=== PATIENT | female | born 1995 | race Caucasian/White ===

== ENCOUNTER 2017-03-27 13:03 | Inpatient (IN) ==
--- NOTE | 2017-03-27 13:19 | Emergency Department Note ---
Disposition Clinical Impression: Meningitis Disposition: Admitted As Inpatient Condition: Good Time of Disposition: 17:35 General Adult HPI - General Chief complaint: ED Neck Pain/Injury Stated complaint: R/O meningitis Time Seen by Provider: 03/27/17 13:13 Source: patient Limitations: no limitations Nursing Notes Reviewed: Yes Vital Signs Reviewed: Yes - History of Present Illness HPI Narrative: 22-year-old female who was seen here yesterday diagnosed with a bladder infection comes in with bilateral ankle pain and right shoulder pain headache and neck pain. Patient was seen at the urgent care and sent here for rule out meningitis. Patient states she has not run a fever although she feels hot inside. Onset (ago): day(s) (2) Location: upper extremity, lower extremity Pain Scale: 10 Quality: aching Consistency: constant Improves with: nothing Worsens with: nothing Associated symptoms: Reports: headaches - Related Data Home Medications Medication Instructions Recorded Confirmed cephALEXin [Keflex] 500 mg PO BID 03/27/17 Previous Rx's Medication Instructions Recorded Ibuprofen [Motrin] 600 mg PO Q6HR PRN #30 tab 03/26/17 Nitrofurantoin Monohyd/M-Cryst 100 mg PO BID #20 capsule 03/26/17 [Macrobid 100 mg Capsule] Allergies Allergy/AdvReac Type Severity Reaction Status Date / Time No Known Allergies Allergy Verified 03/27/17 13:10 All systems ED: reviewed and negative except as stated. Constitutional: Denies: fever, chills, weakness, weight change Eyes: Denies: eye pain, eye discharge, vision change ENT ED: Denies: ear pain, throat pain, dental pain, hearing loss, epistaxis, congestion, dysphagia Cardiovascular: Denies: chest pain, palpitations, dyspnea on exertion, edema, syncope Respiratory: Denies: cough, dyspnea, wheezes, hemoptysis, stridor Gastrointestinal: Denies: abdominal pain, nausea, vomiting, diarrhea, constipation, hematemesis, melena, hematochezia Genitourinary: Denies: dysuria, frequency, hematuria, discharge Musculoskeletal: Reports: neck pain, arthralgia. Denies: back pain, myalgia Integumentary: Denies: rash, abrasion, lesions Neurological: Denies: headache, weakness, numbness, paresthesias, confusion, abnormal gait, vertigo Psychiatric: Denies: anxiety, depression, suicidal thoughts, homicidal thoughts , auditory hallucinations, visual hallucinations Endocrine: Denies: fatigue Hematological/Lymphatic: Denies: easy bleeding, easy bruising Allergic/Immunologic: Denies: facial swelling, urticaria Past Medical History - Past Medical History Medical history: Reports: no medical history Psychiatric history: Reports: anxiety, bipolar, depression [employer] history: Reports: endometriosis - Social History Smoking Status: Former smoker Smokeless Tobacco Status: No Alcohol use: Reports: none Drug use: Reports: none Physical Exam - General Limitations: no limitations General appearance: alert, in no apparent distress - Head Head exam: atraumatic, normocephalic, normal inspection - Eye Eye exam: Present: normal appearance, PERRL, EOMI - ENT ENT exam: normal exam, normal oropharynx, mucous membranes moist - Neck Neck exam: Present: normal inspection, full ROM, trachea midline - Chest Chest inspection: Present: normal inspection, symmetric chest wall rise - Respiratory Respiratory exam: Present: normal lung sounds bilaterally - Cardiovascular Cardiovascular exam: Present: regular rate, normal rhythm, normal heart sounds - Abdominal Exam Abdominal exam: Present: soft, Non-Tender. Absent: tenderness, distention, guarding, rebound, rigidity - Extremities Exam Extremities exam: Present: normal inspection, full ROM. Absent: tenderness, pedal edema - Expanded Lower Extremity Exam Neurovascular/Tendon exam: Absent: motor deficit, sensory deficit, tendon deficit Gait: observed and normal - Back Exam Back exam: Present: normal inspection, full ROM. Absent: tenderness - Neurological Exam Neurological exam: Present: alert, oriented X3 - Psychiatric Psychiatric exam: Present: normal affect, normal mood - Skin Skin exam: Present: warm, dry, intact, normal color Course - Reevaluation(s) Reevaluation #1: Patient with a headache and generalized body aches. Patient was seen at the urgent care concern for meningitis. Patient's white count is 18,000. Informed consent for LP was obtained clear fluid was obtained. However she does have 12 cells per high-powered field with 55% neutrophils. Based on her clinical presentation this likely represents a early viral meningitis, however until cultures are returned we will treat her as bacterial. She was given 2 g of Rocephin, a gram of vancomycin. Time: 17:33 Reevaluation #2: Hospitalist called back and requested we get a head CT prior to the patient being admitted. Time: 17:40 Reevaluation #3: Patient developed redness and itching of the scalp. The vancomycin was stopped and will be given Benadryl. After symptoms resolved starting the vancomycin at a lower rate will be attempted. Time: 19:26 - Consultations Consultation #1: Discussed with Cat Her nurse practitioner accepts patient for admission Time: 17:34 Consultation #2: I discussed stopping the vancomycin with , he will restart. Time: 19:51 Vital Signs Temperature 98.6 F 03/27/17 13:06 Pulse Rate 121 03/27/17 13:06 Respiratory Rate 20 03/27/17 13:06 Blood Pressure 143/88 03/27/17 13:06 O2 Sat by Pulse Oximetry 97 03/27/17 13:06 Temperature 98.6 F 03/27/17 13:06 Pulse Rate 115 03/27/17 17:44 Respiratory Rate 16 03/27/17 17:44 Blood Pressure 118/76 03/27/17 17:44 O2 Sat by Pulse Oximetry 100 03/27/17 17:44 Oxygen Delivery Oxygen Delivery Room Air Medical Decision Making - Lab Data Lab results reviewed: Yes I reviewed the patient's lab results. Result diagrams: 03/27/17 13:36 03/27/17 13:36 Lab Results 03/27/17 03/27/17 03/27/17 Range/Units 13:36 13:36 13:36 WBC 18.0 H (4.3-11.1) K/mcL RBC 5.23 H (3.82-4.97) M/mcL Hgb 14.6 (11.5-15.4) g/dL Hct 45.0 H (35.3-44.9) % MCV 86.0 (83.0-100.0) fL MCH 27.9 L (28.0-33.3) pg MCHC 32.4 (31.6-35.5) g/dL RDW 12.5 (11.5-14.5) % Plt Count 270 (140-400) K/mcL MPV 9.8 (9.4-12.4) fL Immature Gran % 0.4 (0-4) % Seg Neutrophils % 83.8 % Lymphocytes % 8.2 % Monocytes % 6.7 % Eosinophils % 0.7 % Basophils % 0.2 % Neutrophils # 15.1 H (1.6-8.9) K/mcL Lymphocytes # 1.5 (0.6-4.6) K/mcL Monocytes # 1.2 (0.0-1.3) K/mcL Eosinophils # 0.1 (0.0-0.6) K/mcL Basophils # 0.0 (0.0-0.2) K/mcL Sodium 139 (136-145) mEq/L Potassium 4.0 (3.5-4.5) mEq/L Chloride 104 (98-109) mEq/L Carbon Dioxide 22 (19-29) mEq/L BUN 11 (7-20) mg/dL Creatinine 0.81 (0.57-1.11) mg/dL Est GFR ( Amer) > 60 (> 60) Est GFR (Non-Af Amer) > 60 (> 60) BUN/Creatinine Ratio 14 (6-26) Glucose 83 (70-99) mg/dL Calculated Osmolality 287 (280-300) Uric Acid (2.6-6.0) mg/dL Calcium 10.5 (8.6-10.8) mg/dL Creatine Kinase 60 (29-168) Units/L Serum , Qual Negative (Negative) CSF Volume mL CSF Appearance (Clear) CSF Color (Colorless) CSF RBC (0.000 - 0.002) M/mcL CSF Tot Nucleated Cells (0-5) TNC/mcL CSF Seg Neutrophils % CSF Band Neutrophils % CSF Lymphocytes % % CSF Monocytes % % CSF Eosinophils % CSF Basophils % CSF Other Cells % CSF Glucose (40-70) mg/dL CSF Xanth Comm (Not Observe) CSF Total Protein (15-45) mg/dL 03/27/17 03/27/17 Range/Units 13:36 16:05 WBC (4.3-11.1) K/mcL RBC (3.82-4.97) M/mcL Hgb (11.5-15.4) g/dL Hct (35.3-44.9) % MCV (83.0-100.0) fL MCH (28.0-33.3) pg MCHC (31.6-35.5) g/dL RDW (11.5-14.5) % Plt Count (140-400) K/mcL MPV (9.4-12.4) fL Immature Gran % (0-4) % Seg Neutrophils % % Lymphocytes % % Monocytes % % Eosinophils % % Basophils % % Neutrophils # (1.6-8.9) K/mcL Lymphocytes # (0.6-4.6) K/mcL Monocytes # (0.0-1.3) K/mcL Eosinophils # (0.0-0.6) K/mcL Basophils # (0.0-0.2) K/mcL Sodium (136-145) mEq/L Potassium (3.5-4.5) mEq/L Chloride (98-109) mEq/L Carbon Dioxide (19-29) mEq/L BUN (7-20) mg/dL Creatinine (0.57-1.11) mg/dL Est GFR ( Amer) (> 60) Est GFR (Non-Af Amer) (> 60) BUN/Creatinine Ratio (6-26) Glucose (70-99) mg/dL Calculated Osmolality (280-300) Uric Acid 3.9 (2.6-6.0) mg/dL Calcium (8.6-10.8) mg/dL Creatine Kinase (29-168) Units/L Serum , Qual (Negative) CSF Volume 4.5 mL CSF Appearance Clear (Clear) CSF Color Colorless (Colorless) CSF RBC < 0.002 (0.000 - 0.002) M/mcL CSF Tot Nucleated Cells 12 H* (0-5) TNC/mcL CSF Seg Neutrophils 55.0 % CSF Band Neutrophils % Test Not Performed CSF Lymphocytes % 43.0 % CSF Monocytes % 2.0 % CSF Eosinophils % Test Not Performed CSF Basophils % Test Not Performed CSF Other Cells % Test Not Performed CSF Glucose 52 (40-70) mg/dL CSF Xanth Comm Not Observed (Not Observe) CSF Total Protein 19 (15-45) mg/dL - Radiology Data Radiology results reviewed: Yes I reviewed the patient's radiology results. Chest X-Ray 03/27/17 13:20 IMPRESSION: No acute cardiopulmonary process. D/ / 03/27/2017 14:26:34 Duy Goodson MD / [email or web address] Interpreting Provider: Duy Goodson MD Ankle X-Ray 03/27/17 13:22 IMPRESSION: 1. No radiographic finding to account for patient's right or left ankle pain. D/ / Oren Henning MD / Oren Henning MD Interpreting Provider: Oren Henning MD Shoulder X-Ray 03/27/17 13:22 IMPRESSION: No acute osseous abnormality of the right shoulder. D/ / 03/27/2017 14:34:39 Duy Goodson MD / [email or web address] Interpreting Provider: Duy Goodson MD Critical Care Time Critical Care Time: Yes Total Critical Care Time: 30 Attestation: The high probability of a clinically significant, sudden or life threatening deterioration of the [neurological] system(s) required my full and direct attention, intervention and personal management. The aggregate critical care time was [30] minutes. This time is in addition to time spent performing reported procedures but includes the following: [x] Data Review and interpretation [x] Patient assessment and monitoring of vital signs [x] Documentation [x] Medication orders and management
[2017-03-27] MEDS ORDERED: 0.9 % Sodium Chloride 1,000 ML IVC ONE (13:24)
[2017-03-27 13:43] LABS: Basophils % 0.2 %; Eosinophils # 0.1 K/mcL (0.0-0.6); Eosinophils % 0.7 %; Hemoglobin 14.6 g/dL (11.5-15.4); Immature Granulocytes % 0.4 % (0-4); Lymphocytes # 1.5 K/mcL (0.6-4.6); Lymphocytes % 8.2 %; Mean Corpuscular HGB Conc 32.4 g/dL (31.6-35.5); Mean Corpuscular Hemoglobin 27.9 pg (28.0-33.3); Mean Platelet Volume 9.8 fL (9.4-12.4); Monocytes # 1.2 K/mcL (0.0-1.3); Monocytes % 6.7 %; Neutrophils # 15.1 K/mcL (1.6-8.9); Platelet Count 270 K/mcL (140-400); Red Blood Count 5.23 M/mcL (3.82-4.97); Red Cell Distribution Width 12.5 % (11.5-14.5); Segmented Neutrophils % 83.8 %
[2017-03-27 13:58] LABS: BUN/Creatinine Ratio 14 (6-26); Blood Urea Nitrogen 11 mg/dL (7-20); Calcium 10.5 mg/dL (8.6-10.8); Carbon Dioxide 22 mEq/L (19-29); Chloride 104 mEq/L (98-109); Creatine Kinase 60 Units/L (29-168); Glucose 83 mg/dL (70-99); Osmolality,Calculated 287 (280-300); Sodium 139 mEq/L (136-145); eGFR For African Americans > 60 (> 60); eGFR For Non-African Americans > 60 (> 60)
[2017-03-27] MEDS ORDERED: 0.9 % Sodium Chloride 1,000 ML IVC SCH (15:30)
[2017-03-27] MEDS ORDERED: *HR* Midazolam HCl 2 MG/2 ML VIAL IVP ONE (15:44)
[2017-03-27] MEDS ORDERED: Ondansetron 4 MG/2 ML VIAL IVP ONE ×2 (15:45→19:15)
[2017-03-27] MEDS ORDERED: Ondansetron 4 MG/2 ML VIAL ONE (15:47)
[2017-03-27] MEDS ORDERED: Lidocaine -MPF 1% 2 ML VIAL INFILT ONE (15:54)
[2017-03-27] MEDS ORDERED: Lidocaine -MPF 2% 5 ML VIAL ONE (15:56)
[2017-03-27 16:54] LABS: Glucose,CSF 52 mg/dL (40-70); Total Protein,CSF 19 mg/dL (15-45)
[2017-03-27 17:00] LABS: Red Blood Cell,CSF < 0.002 M/mcL
[2017-03-27] MEDS ORDERED: Vancomycin 1,000 MG in D5% in Water 250 ML IVPB ONE (17:04)
[2017-03-27 17:19] LABS: Appearance,CSF Clear (Clear)
[2017-03-27] MEDS: 0.9 % Sodium Chloride 1,000 ML IVC SCH ×2 (17:36→22:50)
[2017-03-27] MEDS ORDERED: *HR* Morphine 2 MG/ML SYRINGE IVP ONE (19:15)
--- NOTE | 2017-03-27 20:16 | Internal Med History&Physical ---
Date of Encounter: 03/27/17 Time of Encounter: 19:45 Assessment and Plan (1) Meningitis Current visit: Yes Status: Acute Assess: Ms. Camejo presents with symptoms that began two days ago and worsened this morning with pinpoint rash starting on her lower extremities and spreading to her thighs and abdomen and she went to the urgent care who sent her to the ED for evaluation for possible meningitis. Patient also reports pain in right hand with swelling, right shoulder, upper and lower back, and left ankle. Left ankle has 2.5 inch circular erythematous area over lateral malleolus that patient describes as extremely painful and prevents her from use of her left foot. Patient also reports some photophobia and headache. Plan: Lumbar puncture performed in ED to rule out/confirm meningitis. Awaiting results Ceftriaxone and vancomycin ordered for broad spectrum infection coverage for meningitis Infectious disease consult ordered Blood cultures and follow-up cultures ordered Monitor patient for increased signs of infection Monitor patient and vital signs (2) Lyme disease Current visit: Yes Status: Acute Assess: Ms. Camejo presents with symptoms that began two days ago and worsened this morning with pinpoint rash starting on her lower extremities and spreading to her thighs and abdomen and she went to the urgent care who sent her to the ED for evaluation for possible meningitis. Patient also reports pain in right hand with swelling, right shoulder, upper and lower back, and left ankle. Left ankle has 2.5 inch circular erythematous area over lateral malleolus that patient describes as extremely painful and prevents her from use of her left foot. Patient also reports some photophobia and headache. Due to erythematous area on left ankle, pinpoin rash, polyarthritis, headache, and neck pain Lyme disease must remain as a possible diagnosis. Plan: Doxycycline ordered for infection coverage for Lyme disease Infectious disease consult ordered Blood cultures and follow-up cultures ordered Monitor patient for increased signs of infection Monitor patient and vital signs (3) Body aches Current visit: Yes Status: Acute Assess: Patient presents with reported pain in her right hand with swelling, right shoulder, upper and lower back, neck, and left ankle. Xray imaging for shoulder , ankles, and chest are all unremarkable. Pain is most likely due to diagnosis of viral meningitis versus Lyme disease. Plan: Motrin 800 mg Q8 PRN ordered for moderate pain rated 4-6 Tramadol 50 mg Q4 ordered for severe pain rated 7-10 Monitor patient and patient's vitals for pain (4) UTI (urinary tract infection) Current visit: Yes Status: Acute Assess: Patient diagnosed with UTI 48 hours ago and was placed on cephalexin for infection coverage. Plan: Discontinue Keflex Patient now receiving IV ceftriaxone, doxycycline, and vancomycin for broad spectrum coverage for possible meningitis versus Lyme disease which will also cover UTI infection Qualifiers: Urinary tract infection type: site unspecified Hematuria presence: without hematuria Qualified Code(s): N39.0 - Urinary tract infection, site not specified (5) DVT prophylaxis Current visit: Yes Status: Acute Assess: Patient to receive DVT prophylaxis due to inpatient status and bed rest. Plan: Lovenox 40 mg SQ daily ordered Internal Medicine - H&P: HPI Chief complaint: Neck/shoulder/back/ankle pain Admitted From: Emergency Dept Plans for Post Hospital Care: Home History of present illness: Ms. Camejo is a 22 year old female presents from the ED with chief complaints of pain in back, neck, right shoulder, and bilateral ankles with left lateral malleolus being the most painful during examination. Left lateral malleolus also has erythematous nez perce approximately 2.5 inches in diameter. Patient reports that she cannot move her foot or place weight on it without severe pain. Patient denies fever but reports chills and a feeling of being hot inside. Patient was seen on 03/26/17 for urinary symptoms and diagnosed with bladder infection and placed on oral cephalexin. Ms. Camejo states that these symptoms began two days ago and worsened this morning with pinpoint rash starting on her lower extremities and spreading to her thighs and abdomen and she went to the urgent care who sent her to the ED for evaluation for possible meningitis. Patient reports loss of appetite for the past 2-3 days. Patient denies fever, abdominal pain, nausea, vomiting, diarrhea, hematochezia, cough, SOB, sore throat, hematemesis, or generalized weakness. Patient is currently tachycardic with HR ranging between 100-120 bpm. Patient is at high risk for suspicion of viral meningitis versus Lyme disease. Ms. Camejo will be placed on broad spectrum antibiotics for meningitis coverage as well as doxycycline for coverage of Lyme disease. Lyme titers have been ordered as has infectious disease consult. Patient will be placed as inpatient status with high risk for sepsis and neurological decline related to possible meningitis. Patient to be monitored closely. Past Med Surg Social Fam HX - Past Medical History Source: patient Medical history: no medical history Psychiatric history: anxiety, bipolar, depression - Past Surgical History Surgical History: no surgical history - Social History Smoking Status: Former smoker Smokeless Tobacco Status: No Alcohol use: none Drug use: none Occupational status: employed Current living situation: Home, With Family Activity Level: Independent ambulation Recent Out of Country Travel Within the Last 8 Weeks: No Exposure or Possible Exposure to Illness During Travel: No Internal Medicine - H&P: Meds Ibuprofen [Motrin] 600 mg PO Q6HR PRN #30 tab 03/26/17 [Rx] Nitrofurantoin Monohyd/M-Cryst [Macrobid 100 mg Capsule] 100 mg PO BID #20 capsule 03/26/17 [Rx] cephALEXin [Keflex] 500 mg PO BID 03/27/17 [History] Allergies diphenhydramine [From Benadryl] Adverse Reaction (Verified 03/27/17 20:11) Agitated All Systems PM: A 10-system review of systems was performed and is negative for pertinent findings except as documented above in the HPI. - Constitutional Constitutional: as per HPI, anorexia, chills - EENT Eyes: no change in vision, no discharge, no pain, no photophobia Ears: no ear discharge, no ear pain, no tinnitus Nose, mouth and throat: as per HPI, neck pain, no dysphagia, no nasal discharge , no sore throat - Breasts Breasts: as per HPI - Cardiovascular Cardiovascular ROS IM: as per HPI, other (Tachycardia) - Respiratory Respiratory: no cough, no dyspnea, no wheezing, no excessive phlegm production - Gastrointestinal Gastrointestinal: no abdominal pain, no diarrhea, no hematemesis, no hematochezia, no melena, no nausea, no vomiting - Genitourinary Genitourinary: no change in urinary stream, no dysuria, no flank pain, no hematuria Menstruation: as per HPI - Musculoskeletal Musculoskeletal ROS IM: as per HPI, back pain, neck pain, other (Right shoulder pain, bilateral ankle pain with pain worse in left ankle), no numbness, no tingling - Integumentary Integumentary IM: rash (Pinpoint rash located on arms, lower legs, and abdomen) - Neurological Neurological ROS: no confusion, no convulsions, no focal weakness, no numbness, no tingling, no tremor(s) - Psychiatric Psychiatric: as per HPI - Endocrine Endocrine IM: as per HPI - Hematologic/Lymphatic Hematologic/Lymphatic: no easy bruising - Allergic/Immunologic Allergic/Immunologic: as per HPI - Constitutional Vitals: Temp Pulse Resp BP Pulse Ox 98.6 F 102 17 112/80 100 03/27/17 13:06 03/27/17 20:08 03/27/17 20:08 03/27/17 20:08 03/27/17 20:08 General appearance: Present: cooperative, mild distress, A&O X 3, pleasant, answers questions appropriately - Head Head exam: Present: atraumatic, normocephalic - Eye Eye exam: Present: PERRL, conjuntiva pink, sclera anicteric Pupils: Present: PERRL - ENT ENT exam: Present: normal exam, normal external ear exam - Neck Neck exam general surgery: Present: supple, trachea midline. Absent: lymphadenopathy - Respiratory Respiratory exam: Present: CTAB. Absent: accessory muscle use, rales, rhonchi, wheezes - Cardiovascular Cardiovascular exam: Present: RRR, +S1, +S2. Absent: diastolic murmur, gallop, rubs, systolic murmur - GI/Abdominal GI/Abdominal exam: Present: normal bowel sounds, soft, no peritoneal signs. Absent: distended, tenderness - Rectal Rectal exam: Present: deferred - Additional comments: exam deferred. - Extremities Exam Extremities exam: Present: tenderness (Bilateral ankles with pain worse in left ankle. Patient unable to move left foot to any ), warm - Back Exam Back exam: Present: tenderness - Neurological Exam Neurological exam: Present: CN II-XII intact, oriented X3, no focal deficits. Absent: pronater drift, facial droop, speech deficit - Psychiatric Psychiatric exam: Present: normal affect, normal mood - Skin Skin exam: Present: dry, erythema (Left lateral malleolus with 2.5 inch erythematous circular area), intact, rash (Pinpoint rash noted on lower legs, arms, abdomen) Internal Med - H&P Results - Labs CBC & Chem 7: 03/27/17 13:36 03/27/17 13:36 - Diagnostic Studies Chest x-ray Additional comments: Impressions Chest X-Ray 03/27/17 13:20 IMPRESSION: No acute cardiopulmonary process. D/ / 03/27/2017 14:26:34 Duy Goodson MD / [email or web address] Interpreting Provider: Duy Goodson MD Other Images Additional comments: Impressions Ankle X-Ray 03/27/17 13:22 IMPRESSION: 1. No radiographic finding to account for patient's right or left ankle pain. D/ / Oren Henning MD / Oren Henning MD Interpreting Provider: Oren Henning MD Ankle X-Ray 03/27/17 13:22 IMPRESSION: 1. No radiographic finding to account for patient's right or left ankle pain. D/ / Oren Henning MD / Oren Henning MD Interpreting Provider: Oren Henning MD Shoulder X-Ray 03/27/17 13:22 IMPRESSION: No acute osseous abnormality of the right shoulder. D/ / 03/27/2017 14:34:39 Duy Goodson MD / [email or web address] Interpreting Provider: Duy Goodson MD CT scan - head Additional comments: Impressions Head CT 03/27/17 17:39 IMPRESSION: No acute intracranial abnormality. D/ / 03/27/2017 18:55:22 Oren Henning MD / [email or web address] Interpreting Provider: Oren Henning MD
[2017-03-27] MEDS ORDERED: Acetaminophen 325 MG TABLET PO PRN (20:59)
[2017-03-27] MEDS ORDERED: Naloxone 0.4 MG/ML INJ IVP PRN (20:59)
[2017-03-27] MEDS: Ibuprofen 400 MG TABLET PO PRN (21:28)
--- NOTE | 2017-03-27 21:38 | Event Note ---
Date of Encounter: 03/27/17 Time of Encounter: 20:40 I examined this patient and my medical decision-making was reviewed with the PERSONAL CARE AID/PA/Advanced Practice Nurse/Resident Physician. I agree with the documented findings, disposition and treatment plan as described except to the extent set forth below. 22 year-old female presented to the emergency department due to headache, neck and back pain. Patient was in usual state of health until about 4 days ago when she started developing burning with urination. At the same time , she also noticed red colored rash that started on her thighs then proceeded to her legs and to her abdomen. 2 days ago she started experiencing pain in her right hand, right shoulder, upper and lower back in the midline and left ankle. She also reports swelling of the fingers of the right hand when she wakes up in the morning. Currently, she complains of mine/10 pain in the left ankle and is unable to walk on her left foot due to pain in that left ankle. She also complains of pain in the right hand although she says that the swelling is better. She reports chronic sensitivity to light and does not report any acute worsening. She does report a headache and neck pain. On exam, patient is lying in bed and is in moderate distress due to pain in her left ankle. No neck stiffness present. Kernig's sign is negative. Macular papular rash present over bilateral thighs, legs and abdomen. Tenderness to palpation over the left ankle joint over the lateral and medial malleoli and reproducible pain with passive and active range of motion. Tenderness to palpation of the right hand. Dermatologic exam also reveals erythema over the lateral aspect of her left ankle. Laboratory data reviewed. Radiology results reviewed. Assessment/plan: 1. Suspected viral aseptic meningitis versus Lyme disease-patient be admitted to inpatient status. Intravenous broad-spectrum antibody therapy for meningitis coverage. Patient will also be started on doxycycline by mouth for suspected Lyme disease. Given her rash, erythema over the lateral malleolus of the left ankle, polyarthritis, headache and neck pain, suspicion for Lyme disease. Lyme titers have been sent out. Infectious disease consult. Patient is high risk due to possible meningitis and is at risk of sepsis and neurological decline. BRUNO Haile
[2017-03-27] MEDS ORDERED: Ketorolac 30 MG/ML VIAL IVP ONE (21:43)
[2017-03-27] MEDS: Doxycycline 100 MG CAPSULE PO SCH (22:02)
--- NOTE | 2017-03-27 22:23 | Emergency Department Note ---
Disposition Clinical Impression: Meningitis Disposition: Admitted As Inpatient Condition: Good General Adult HPI - General Chief complaint: ED Neck Pain/Injury Stated complaint: R/O meningitis Time Seen by Provider: 03/27/17 13:13 Source: patient Limitations: no limitations - History of Present Illness HPI Narrative: This document serves as a procedure note for the patient's lumbar puncture while she was in the emergency department. Location: upper extremity, lower extremity Pain Scale: 4 Quality: aching Improves with: nothing Worsens with: nothing Associated symptoms: Reports: headaches - Related Data Home Medications Medication Instructions Recorded Confirmed cephALEXin [Keflex] 500 mg PO BID 03/27/17 Previous Rx's Medication Instructions Recorded Ibuprofen [Motrin] 600 mg PO Q6HR PRN #30 tab 03/26/17 Nitrofurantoin Monohyd/M-Cryst 100 mg PO BID #20 capsule 03/26/17 [Macrobid 100 mg Capsule] Allergies Allergy/AdvReac Type Severity Reaction Status Date / Time diphenhydramine AdvReac Agitated Verified 03/27/17 20:11 [From [place]] Constitutional: Denies: fever, chills, weakness, weight change Eyes: Denies: eye pain, eye discharge, vision change ENT ED: Denies: ear pain, throat pain, dental pain, hearing loss, epistaxis, congestion, dysphagia Cardiovascular: Denies: chest pain, palpitations, dyspnea on exertion, edema, syncope Respiratory: Denies: cough, dyspnea, wheezes, hemoptysis, stridor Gastrointestinal: Denies: abdominal pain, nausea, vomiting, diarrhea, constipation, hematemesis, melena, hematochezia Genitourinary: Denies: dysuria, frequency, hematuria, discharge Musculoskeletal: Reports: neck pain, arthralgia. Denies: back pain, myalgia Integumentary: Denies: rash, abrasion, lesions Neurological: Denies: headache, weakness, numbness, paresthesias, confusion, abnormal gait, vertigo Psychiatric: Denies: anxiety, depression, suicidal thoughts, homicidal thoughts , auditory hallucinations, visual hallucinations Endocrine: Denies: fatigue Hematological/Lymphatic: Denies: easy bleeding, easy bruising Allergic/Immunologic: Denies: facial swelling, urticaria Past Medical History - Past Medical History Medical history: Reports: no medical history Surgical history: Reports: no surgical history Psychiatric history: Reports: anxiety, bipolar, depression [employer] history: Reports: endometriosis - Social History Smoking Status: Former smoker Smokeless Tobacco Status: No Alcohol use: Reports: none Drug use: Reports: none Physical Exam - General Limitations: no limitations General appearance: alert, in no apparent distress Course Vital Signs Temperature 98.6 F 03/27/17 13:06 Pulse Rate 121 03/27/17 13:06 Respiratory Rate 20 03/27/17 13:06 Blood Pressure 143/88 03/27/17 13:06 O2 Sat by Pulse Oximetry 97 03/27/17 13:06 Temperature 99.2 F 03/27/17 22:21 Pulse Rate 108 03/27/17 22:21 Respiratory Rate 18 03/27/17 22:21 Blood Pressure 142/83 03/27/17 22:21 O2 Sat by Pulse Oximetry 99 03/27/17 22:21 Oxygen Delivery Oxygen Delivery Room Air Procedures - Lumbar Puncture Consent Obtained: written consent Time Out Performed: Yes Patient Position: upright Skin Prep: Povidone-Iodine 1% Local Anesthetic: lidocaine 1% Amount of anesthesia used (mL): 8 Spinal Needle Gauge: 22G Interspace Used: L3-L4 Fluid Initially Obtained: clear Additional Comments: All monitors were placed and the patient an IV access was obtained with 0.9% normal saline fluid running open. Patient received 1 mg of Ativan to help alleviate her anxiety. She winced in pain when she was touched by the paper drape. Through a combination of the Ativan as well as calm discussion and playing peaceful piano music on the patient's phone, she was able to relax as often extent that we could proceed with the procedure. She tolerated the procedure well with no immediate competitions. Complications: none Medical Decision Making - Lab Data Result diagrams: 03/27/17 13:36 03/27/17 13:36 Lab Results 03/27/17 03/27/17 03/27/17 Range/Units 13:36 13:36 13:36 WBC 18.0 H (4.3-11.1) K/mcL RBC 5.23 H (3.82-4.97) M/mcL Hgb 14.6 (11.5-15.4) g/dL Hct 45.0 H (35.3-44.9) % MCV 86.0 (83.0-100.0) fL MCH 27.9 L (28.0-33.3) pg MCHC 32.4 (31.6-35.5) g/dL RDW 12.5 (11.5-14.5) % Plt Count 270 (140-400) K/mcL MPV 9.8 (9.4-12.4) fL Immature Gran % 0.4 (0-4) % Seg Neutrophils % 83.8 % Lymphocytes % 8.2 % Monocytes % 6.7 % Eosinophils % 0.7 % Basophils % 0.2 % Neutrophils # 15.1 H (1.6-8.9) K/mcL Lymphocytes # 1.5 (0.6-4.6) K/mcL Monocytes # 1.2 (0.0-1.3) K/mcL Eosinophils # 0.1 (0.0-0.6) K/mcL Basophils # 0.0 (0.0-0.2) K/mcL Sodium 139 (136-145) mEq/L Potassium 4.0 (3.5-4.5) mEq/L Chloride 104 (98-109) mEq/L Carbon Dioxide 22 (19-29) mEq/L BUN 11 (7-20) mg/dL Creatinine 0.81 (0.57-1.11) mg/dL Est GFR ( Amer) > 60 (> 60) Est GFR (Non-Af Amer) > 60 (> 60) BUN/Creatinine Ratio 14 (6-26) Glucose 83 (70-99) mg/dL Calculated Osmolality 287 (280-300) Uric Acid (2.6-6.0) mg/dL Calcium 10.5 (8.6-10.8) mg/dL Creatine Kinase 60 (29-168) Units/L Serum , Qual Negative (Negative) CSF Volume mL CSF Appearance (Clear) CSF Color (Colorless) CSF RBC (0.000 - 0.002) M/mcL CSF Tot Nucleated Cells (0-5) TNC/mcL CSF Seg Neutrophils % CSF Band Neutrophils % CSF Lymphocytes % % CSF Monocytes % % CSF Eosinophils % CSF Basophils % CSF Other Cells % CSF Glucose (40-70) mg/dL CSF Xanth Comm (Not Observe) CSF Total Protein (15-45) mg/dL 03/27/17 03/27/17 Range/Units 13:36 16:05 WBC (4.3-11.1) K/mcL RBC (3.82-4.97) M/mcL Hgb (11.5-15.4) g/dL Hct (35.3-44.9) % MCV (83.0-100.0) fL MCH (28.0-33.3) pg MCHC (31.6-35.5) g/dL RDW (11.5-14.5) % Plt Count (140-400) K/mcL MPV (9.4-12.4) fL Immature Gran % (0-4) % Seg Neutrophils % % Lymphocytes % % Monocytes % % Eosinophils % % Basophils % % Neutrophils # (1.6-8.9) K/mcL Lymphocytes # (0.6-4.6) K/mcL Monocytes # (0.0-1.3) K/mcL Eosinophils # (0.0-0.6) K/mcL Basophils # (0.0-0.2) K/mcL Sodium (136-145) mEq/L Potassium (3.5-4.5) mEq/L Chloride (98-109) mEq/L Carbon Dioxide (19-29) mEq/L BUN (7-20) mg/dL Creatinine (0.57-1.11) mg/dL Est GFR ( Amer) (> 60) Est GFR (Non-Af Amer) (> 60) BUN/Creatinine Ratio (6-26) Glucose (70-99) mg/dL Calculated Osmolality (280-300) Uric Acid 3.9 (2.6-6.0) mg/dL Calcium (8.6-10.8) mg/dL Creatine Kinase (29-168) Units/L Serum , Qual (Negative) CSF Volume 4.5 mL CSF Appearance Clear (Clear) CSF Color Colorless (Colorless) CSF RBC < 0.002 (0.000 - 0.002) M/mcL CSF Tot Nucleated Cells 12 H* (0-5) TNC/mcL CSF Seg Neutrophils 55.0 % CSF Band Neutrophils % Test Not Performed CSF Lymphocytes % 43.0 % CSF Monocytes % 2.0 % CSF Eosinophils % Test Not Performed CSF Basophils % Test Not Performed CSF Other Cells % Test Not Performed CSF Glucose 52 (40-70) mg/dL CSF Xanth Comm Not Observed (Not Observe) CSF Total Protein 19 (15-45) mg/dL Attestation Statement - Attestation Attestation: LP performed by Dr. Isidro under my supervision
[2017-03-27] MEDS ORDERED: Vancomycin 750 MG in D5% in Water 250 ML IVPB SCH (23:00)
[2017-03-27] MEDS: Loratadine 10 MG TABLET PO SCH (23:11)
[2017-03-28 00:04] LABS: Bilirubin,Direct 0.2 mg/dL (0.0-0.5); Bilirubin,Indirect 0.4 mg/dL (0.0-1.2); Bilirubin,Total 0.6 mg/dL (0.2-1.2); Globulin 2.9 g/dL (2.4-3.5); Total Protein 5.9 g/dL (6.0-8.3)
[2017-03-28 05:13] LABS: Basophils % 0.2 %; Eosinophils # 0.2 K/mcL (0.0-0.6); Eosinophils % 1.5 %; Hematocrit 33.7 % (35.3-44.9); Immature Granulocytes % 0.4 % (0-4); Lymphocytes # 2.1 K/mcL (0.6-4.6); Lymphocytes % 17.8 %; Mean Corpuscular Hemoglobin 28.1 pg (28.0-33.3); Mean Corpuscular Volume 87.8 fL (83.0-100.0); Mean Platelet Volume 10.2 fL (9.4-12.4); Monocytes # 1.2 K/mcL (0.0-1.3); Monocytes % 9.9 %; Neutrophils # 8.2 K/mcL (1.6-8.9); Platelet Count 218 K/mcL (140-400); Red Blood Count 3.84 M/mcL (3.82-4.97); Red Cell Distribution Width 12.5 % (11.5-14.5); Segmented Neutrophils % 70.2 %
[2017-03-28 05:14] LABS: Hemoglobin 10.8 g/dL (11.5-15.4)
[2017-03-28 05:33] LABS: Alanine Aminotransferase 10 Units/L (0-55); Albumin 2.9 g/dL (3.5-5.0); Albumin/Globulin Ratio 0.9 (1.1-2.2); Alkaline Phosphatase 46 Units/L (38-126); Aspartate Amino Transferase 9 Units/L (5-34); BUN/Creatinine Ratio 11 (6-26); Bilirubin,Total 0.4 mg/dL (0.2-1.2); Blood Urea Nitrogen 8 mg/dL (7-20); Carbon Dioxide 23 mEq/L (19-29); Chloride 110 mEq/L (98-109); Globulin 3.1 g/dL (2.4-3.5); Glucose 90 mg/dL (70-99); Osmolality,Calculated 286 (280-300); Sodium 139 mEq/L (136-145); eGFR For African Americans > 60 (> 60); eGFR For Non-African Americans > 60 (> 60)
[2017-03-28 05:37] LABS: Calcium 8.7 mg/dL (8.6-10.8)
[2017-03-28] MEDS: *HR* Enoxaparin 40 MG/0.4 ML SYRINGE SQ SCH (06:21)
[2017-03-28] MEDS ORDERED: Vancomycin 1,000 MG in D5% in Water 250 ML IVPB SCH (07:00)
--- NOTE | 2017-03-28 08:53 | Internal Med Progress Note ---
<Laith Aguirre - Last Filed: 03/28/17 16:17> Date of Encounter: 03/28/17 Time of Encounter: 08:53 - Assessment and plan (1) Meningitis Current Visit: Yes Status: Acute Assessment and plan: Possible meningitis, viral aseptic, lyme are on ddx, chlam/neisseria pcr negative, CSF fluid showed TNC 12, slightly elevated, 55% seg neurtophil, culture prelim negative, ID on board, ESR normal, CRP 91 elevated, con't current abxs of rocephin and doxycycline, for possible autoimmune disease, will check KOLTON, RF, consult rheum, labs for parvo b19, HIV, lyme, hep B/C, uric acid are pending. (2) Sepsis Current Visit: Yes Status: Acute Assessment and plan: Initially leukocytosis and tachycardia, resolved, WBC improved, con't IV abx to treat underlying infection. Qualifiers: Qualified Code(s): A41.9 - Sepsis, unspecified organism (3) Left ankle pain Current Visit: Yes Status: Acute Assessment and plan: Unclear etiology, unlikely tick bite, x-ray normal, questionable autoimmune source, will consult rheum, elevated CPR, normal ESR, will check for KOLTON, RF and uric acid. Qualifiers: Qualified Code(s): M25.572 - Pain in left ankle and joints of left foot (4) DVT prophylaxis Current Visit: Yes Status: Acute Assessment and plan: Lovenox SQ. - Subjective Interval history: Pt seen and examined, she states that she still has headache but it has improved , neck pain and photophobia improved, still has tenderness of lateral side of left ankle. - Constitutional Vitals: Temp Pulse Resp BP Pulse Ox 98.1 F 102 17 93/62 95 03/28/17 04:25 03/28/17 07:00 03/28/17 07:00 03/28/17 07:00 03/28/17 08:07 General appearance: Present: cooperative, mild distress, A&O X 3, pleasant, no acute distress, answers questions appropriately - Respiratory Respiratory exam: Present: CTAB. Absent: accessory muscle use, chest wall tenderness, rales, rhonchi, wheezes - Cardiovascular Cardiovascular exam: Present: RRR, +S1, +S2. Absent: clicks, gallop, rubs, systolic murmur - GI/Abdominal GI/Abdominal exam: Present: normal bowel sounds, soft. Absent: distended, firm , guarding, rebound, rigid, tenderness - Extremities Exam Extremities exam: Present: tenderness (to palpate on left lateral ankle), warm, radial pulses palpable and symetrical. Absent: calf tenderness, pedal edema - Skin Additional comments: erythematous area on left lateral malleolus, slightly diffuse pinpoint rash noted on b/l LE and mid abd Internal Medicine: Result - Labs CBC & Chem 7: 03/28/17 04:05 03/28/17 04:05 Labs: Short CBC 03/28/17 Range/Units 04:05 WBC 11.7 H (4.3-11.1) K/mcL Hgb 10.8 L D (11.5-15.4) g/dL Hct 33.7 L (35.3-44.9) % Plt Count 218 (140-400) K/mcL Neutrophils # 8.2 (1.6-8.9) K/mcL BMP 03/28/17 04:05 Sodium 139 Potassium 4.0 Chloride 110 H Carbon Dioxide 23 BUN 8 Creatinine 0.72 Glucose 90 Calcium 8.7 D Liver Function 03/28/17 Range/Units 04:05 Total Bilirubin 0.4 (0.2-1.2) mg/dL AST 9 (5-34) Units/L ALT 10 (0-55) Units/L Alkaline Phosphatase 46 (38-126) Units/L Albumin 2.9 L (3.5-5.0) g/dL Consult Discharge Plan - Plan Referrals: NO,PCP [Primary Care Provider] - <Jesus Wise - Last Filed: 03/28/17 18:38> Date of Encounter: 03/28/17 - Assessment and plan (1) Sepsis Current Visit: Yes Status: Acute Qualifiers: Sepsis type: sepsis due to unspecified organism Qualified Code(s): A41.9 - Sepsis, unspecified organism (2) Meningitis Current Visit: Yes Status: Acute (3) Left ankle pain Current Visit: Yes Status: Acute Qualifiers: Chronicity: acute Qualified Code(s): M25.572 - Pain in left ankle and joints of left foot - Constitutional Vitals: Temp Pulse Resp BP Pulse Ox 98.1 F 90 16 111/76 95 03/28/17 04:25 03/28/17 15:00 03/28/17 15:00 03/28/17 15:00 03/28/17 08:07 Internal Medicine: Result - Labs CBC & Chem 7: 03/28/17 04:05 03/28/17 04:05 Labs: Short CBC 03/28/17 Range/Units 04:05 WBC 11.7 H (4.3-11.1) K/mcL Hgb 10.8 L D (11.5-15.4) g/dL Hct 33.7 L (35.3-44.9) % Plt Count 218 (140-400) K/mcL Neutrophils # 8.2 (1.6-8.9) K/mcL BMP 03/28/17 04:05 Sodium 139 Potassium 4.0 Chloride 110 H Carbon Dioxide 23 BUN 8 Creatinine 0.72 Glucose 90 Calcium 8.7 D Liver Function 03/28/17 Range/Units 04:05 Total Bilirubin 0.4 (0.2-1.2) mg/dL AST 9 (5-34) Units/L ALT 10 (0-55) Units/L Alkaline Phosphatase 46 (38-126) Units/L Albumin 2.9 L (3.5-5.0) g/dL - Attending Attestation I examined this patient and my medical decision-making was reviewed with the Resident Physician on 03/28/17. I agree with the documented findings, disposition and treatment plan as described except to the extent set forth below. Ms. Camejo is currently admitted for possible meningitis. She is moderate to high risk due to potential for worsening neuro and infectious status. Ms. Camejo feels somewhat better today. Less stiffness. Ankle still painful and swollen. No new symptoms. No fever Exam Alert. Comfortable Heart reg No wheeze No nuchal rigidity I/P 1. Meningitis 2. Ankle pain Further diagnoses and plan as above.
[2017-03-28] MEDS: Doxycycline 100 MG CAPSULE PO SCH ×2 (09:29→20:54)
[2017-03-28] MEDS: Loratadine 10 MG TABLET PO SCH (09:29)
[2017-03-28] MEDS: traMADol 50 MG TABLET PO PRN (10:26)
[2017-03-28] MEDS: Ketorolac 30 MG/ML VIAL IVP PRN ×2 (11:44→17:30)
--- NOTE | 2017-03-28 16:45 | Infectious Disease Consult ---
Date of Encounter: 03/28/17 Time of Encounter: 16:43 Assessment and Plan (1) Meningitis Status: Acute Assessment and plan: Aseptic meningitis. Gram stain is negative cultures are pending. WBC of 12 nucleated cells in the CSF with normal glucose and normal protein. Causative organism not clear does not appear to be bacterial is a question for tickborne illness which I guess theoretically can give you similar CSF findings. Physical exam is really unremarkable for meningitis but she stated that yesterday she had some neck stiffness which has resolved since then. (2) Sepsis Status: Acute Assessment and plan: Patient had to SIRS criteria on admission including leukocytosis at 18,000 and tachycardia. Source is not clear viral versus bacterial versus other Patient had symptoms of UTI before so we will check a urinalysis and urine culture Concern for tickborne illness even though there is no obvious exposure history and no target lesion and the clinical presentation and labs are not suggestive of Ehrlichia or Anaplasma or Grady spotted fever Concern for viral exanthem including HIV, parvovirus, adenovirus, other We'll check respiratory infectious panel, check HIV and hepatitis B and C, check parvovirus B 19, check Lyme serology. Order noninfectious labs including ESR, CRP, KOLTON, rheumatoid factor and uric acid level. Consider rheumatology or orthopedic consult if the left ankle symptoms did not improve for possible tapping. Sensory to have a causative organism but patient is improving and WBC is improved we will continue Rocephin and doxycycline for now. DC droplet isolation because this patient does not have Neisseria meningitidis meningitis Discussed at length with the primary team and the residents on the case. Get blood cultures 2 if temperature goes over 100 Fahrenheit Monitor labs and for drug toxicity. Qualifiers: Sepsis type: sepsis due to unspecified organism Qualified Code(s): A41.9 - Sepsis, unspecified organism (3) Left ankle pain Status: Acute Assessment and plan: There is small swelling and some erythema but not warm to touch. No pain on passive movement Etiology of these arthralgias that are asymmetric is concerning Consider rheumatology or orthopedics evaluate Qualifiers: Chronicity: acute Qualified Code(s): M25.572 - Pain in left ankle and joints of left foot Infectious Disease HPI - Data of Consult Patient: new to practice Consult date: 03/28/17 Requesting Physician: Jesus Wise DO Primary Care Provider: PCP NO - Consult Narrative Reason for consult: sepsis History of present illness: Ms. Camejo is a 22 year old female Patient is a 22-year-old woman who came in to [facility] yesterday with polyarthralgia nonsymmetric we are consulted today for (meningitis send Lyme disease). 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 Patient states that on Saturday she started having right hand pain. The pain was between her thumb and her second digit. Patient stated that she started then having left ankle pain followed by pleuritic chest pain and a headache. Patient denied any fevers, patient denied any chills, patient denies any rigors, patient denied any URI symptoms, no runny nose, no sore throat, no Saturday, no nausea or vomiting, no diarrhea no constipation, no other joint involvement. She did mention that she had a headache on the day of admission and also had some back pain she called it spine pain. Patient did not have any visual changes or altered mental status. Patient denied any travel history. Patient denied any tick bites or spending time outdoors or going camping. Patient denied having any sick contacts or her 3 -year-old son being sick. Patient tells me that she is sexually active. When she was young she had a history of chlamydia at age 14. Patient is sexually active with one partner in the last 6 months and she does not use protection. She was sexually active a day prior to the symptoms starting. Patient thinks she had a rash but she is not sure. She did go tanning the day prior to symptoms starting and she thinks thats what caused the change in color of her skin. Patient also tells me that shes been having recurrent UTI. On further questioning patient tells me that when she was she had eclampsia. Patient and family at bedside denies any history of autoimmune disease, rheumatoid arthritis or lupus. Patient denies smoking drinking or any drug use including IV drug use. Since admission patient has been afebrile but has been tachycardic. Presenting WBC was 18,000 with neutrophilic predominance but no bands. Normal LFTs, normal platelet count. ESR was checked and was 15, CRP was 91. CK level was also checked and it came back at 60. An LP was done and it showed pleocytosis at 12 nucleated cells with 55% neutrophils 43% lymphocytes and 2% monocytes. Patient had normal glucose and normal protein. Patient was also tested for Chlamydia and Neisseria gonorrhea which came back negative. A chest x-ray revealed no acute cardiopulmonary process. X-rays of the joints that were hurting cleaning the ankle and the shoulder revealed no acute processes. Patient was started on doxycycline and IV Rocephin and vancomycin and we were consulted to evaluate the patients make further recommendations. CC: Jesus Wise, DO Past Med Surg Social Fam HX - Past Medical History Medical history: no medical history Psychiatric history: anxiety, bipolar, depression - Past Surgical History Surgical History: no surgical history - Social History Smoking Status: Former smoker Smokeless Tobacco Status: No Alcohol use: none Drug use: none Infectious Disease-CN:Meds Ibuprofen [Motrin] 600 mg PO Q6HR PRN #30 tab 03/26/17 [Rx] Nitrofurantoin Monohyd/M-Cryst [Macrobid 100 mg Capsule] 100 mg PO BID #20 capsule 03/26/17 [Rx] cephALEXin [Keflex] 500 mg PO BID 03/27/17 [History] Allergies diphenhydramine [From Benadryl] Adverse Reaction (Verified 03/27/17 20:11) Agitated Review of systems: 10 point review of systems done, negative other for what mentioned in history of present illness. Exam - Constitutional Vitals: Temp Pulse Resp BP Pulse Ox 98.1 F 90 16 111/76 95 03/28/17 04:25 03/28/17 15:00 03/28/17 15:00 03/28/17 15:00 03/28/17 08:07 General appearance: cooperative, no acute distress, no febrile - Head Head exam: Present: atraumatic, normocephalic - Eye Eye exam: Present: EOMI, PERRL, sclera anicteric - ENT ENT exam: Present: mucous membranes moist - Neck Neck exam: Present: full ROM. Absent: meningismus - Respiratory Respiratory exam: Present: CTAB. Absent: wheezes - Cardiovascular Cardiovascular exam: Present: RRR, +S1, +S2 Additional comments: No murmur - GI/Abdominal GI/Abdominal exam: Present: soft. Absent: tenderness Additional comments: No splenomegaly or hepatomegaly noted. - Extremities Exam Extremities exam: Present: full ROM, joint swelling, tenderness Additional comments: Some swelling and tenderness to palpation and erythema and pain on active movement of the left ankle. Minimal pain on passive movement. - Back Exam Back exam: Absent: CVA tenderness (L), CVA tenderness (R), vertebral tenderness - Neurological Exam Neurological exam: Present: alert, oriented X3. Absent: no focal deficits - Psychiatric Psychiatric exam: Present: anxious - Skin Additional comments: No rash. No target lesion. - Additional findings Additional findings: No axillary, cervical or inguinal lymphadenopathy noted. Infectious Disease CN: Results - Labs CBC & Chem 7: 03/28/17 04:05 03/28/17 04:05 Serology: Serology 03/28/17 Range/Units 11:42 Chlam trachomat DNA PCR NOT DETECTED (Not Detect) N.gonorrhoeae DNA (PCR) NOT DETECTED (Not Detect) Consult Discharge Plan - Plan Referrals: NO,PCP [Primary Care Provider] -
[2017-03-28] MEDS ORDERED: Aminoglycoside Consult 1 EACH MC ONE (19:30)
[2017-03-29 06:02] LABS: Basophils % 0.2 %; Eosinophils # 0.2 K/mcL (0.0-0.6); Eosinophils % 1.3 %; Hemoglobin 11.2 g/dL (11.5-15.4); Immature Granulocytes % 0.5 % (0-4); Lymphocytes # 1.5 K/mcL (0.6-4.6); Lymphocytes % 11.5 %; Mean Corpuscular HGB Conc 32.9 g/dL (31.6-35.5); Mean Corpuscular Hemoglobin 28.4 pg (28.0-33.3); Mean Corpuscular Volume 86.3 fL (83.0-100.0); Mean Platelet Volume 9.7 fL (9.4-12.4); Monocytes # 0.9 K/mcL (0.0-1.3); Monocytes % 6.9 %; Neutrophils # 10.5 K/mcL (1.6-8.9); Platelet Count 229 K/mcL (140-400); Red Blood Count 3.94 M/mcL (3.82-4.97); Red Cell Distribution Width 12.2 % (11.5-14.5); Segmented Neutrophils % 79.6 %
[2017-03-29] MEDS: *HR* Enoxaparin 40 MG/0.4 ML SYRINGE SQ SCH (06:48)
[2017-03-29 06:49] LABS: Rheumatoid Factor < 15 IU/mL (0-29)
[2017-03-29] MEDS: Ketorolac 30 MG/ML VIAL IVP PRN ×2 (06:51→13:37)
[2017-03-29 07:10] LABS: Hepatitis B Surface Antigen Nonreactive (Nonreactive)
--- NOTE | 2017-03-29 08:48 | Internal Med Progress Note ---
<Laith Aguirre - Last Filed: 03/29/17 13:55> Date of Encounter: 03/29/17 Time of Encounter: 08:48 - Assessment and plan (1) Left ankle pain Current Visit: Yes Status: Acute Assessment and plan: Unclear etiology, questionable tick bite, x-ray normal, questionable autoimmune source, rheum consulted, elevated CPR, normal uric acid/ESR, will check for KOLTON , RF. MRI of ankle showed large effusion, will consult podiatry to aspirate the fluid for possibility of septic joint, will discuss with ID team to adjust abx regimen. (2) Meningitis Current Visit: Yes Status: Acute Assessment and plan: Possible meningitis, viral aseptic, lyme are on ddx, chlam/neisseria pcr negative, CSF fluid showed TNC 12, slightly elevated, 55% seg neurtophil, culture prelim negative, ID on board, ESR normal, CRP 91 elevated, con't current abxs of rocephin and doxycycline, for possible autoimmune disease, will check KOLTON, RF, consult rheum, labs for parvo b19, HIV, lyme, hep B/C, uric acid are pending. (3) Sepsis Current Visit: Yes Status: Acute Assessment and plan: Initially leukocytosis and tachycardia, WBC improved but still high, con't IV abx to treat underlying infection. (4) DVT prophylaxis Current Visit: Yes Status: Acute Assessment and plan: Lovenox SQ. - Subjective Interval history: Pt seen and examined, she states that she still has headache but it has improved , neck pain and photophobia improved, still has tenderness of lateral side of left ankle. - Constitutional Vitals: Temp Pulse Resp BP Pulse Ox 98.6 F 88 15 103/70 97 03/29/17 07:09 03/29/17 07:09 03/29/17 07:03/29/17 07:03/29/17 03:14 General appearance: Present: cooperative, mild distress, A&O X 3, pleasant, no acute distress, answers questions appropriately - Respiratory Respiratory exam: Present: CTAB. Absent: accessory muscle use, chest wall tenderness, rales, rhonchi, wheezes - Cardiovascular Cardiovascular exam: Present: RRR, +S1, +S2. Absent: clicks, gallop, rubs, systolic murmur - GI/Abdominal GI/Abdominal exam: Present: normal bowel sounds, soft. Absent: distended, firm , guarding, rebound, rigid, tenderness - Extremities Exam Extremities exam: Present: normal inspection, tenderness (to palpate on left ankle with erythema), warm (to touch on left ankle), radial pulses palpable and symetrical. Absent: calf tenderness Internal Medicine: Result - Labs CBC & Chem 7: 03/29/17 05:52 03/28/17 04:05 Labs: Short CBC 03/29/17 Range/Units 05:52 WBC 13.2 H (4.3-11.1) K/mcL Hgb 11.2 L (11.5-15.4) g/dL Hct 34.0 L (35.3-44.9) % Plt Count 229 (140-400) K/mcL Neutrophils # 10.5 H (1.6-8.9) K/mcL Consult Discharge Plan - Plan Referrals: NO,PCP [Primary Care Provider] - <Jesus Wise - Last Filed: 03/29/17 18:39> Date of Encounter: 03/29/17 - Assessment and plan (1) Sepsis Current Visit: Yes Status: Acute Qualifiers: Sepsis type: sepsis due to unspecified organism Qualified Code(s): A41.9 - Sepsis, unspecified organism (2) Meningitis Current Visit: Yes Status: Acute (3) Left ankle pain Current Visit: Yes Status: Acute Qualifiers: Chronicity: acute Qualified Code(s): M25.572 - Pain in left ankle and joints of left foot - Constitutional Vitals: Temp Pulse Resp BP Pulse Ox 98.3 F 83 17 92/65 97 03/29/17 15:21 03/29/17 15:21 03/29/17 15:21 03/29/17 15:21 03/29/17 03:14 Internal Medicine: Result - Labs CBC & Chem 7: 03/29/17 05:52 03/28/17 04:05 Labs: Short CBC 03/29/17 Range/Units 05:52 WBC 13.2 H (4.3-11.1) K/mcL Hgb 11.2 L (11.5-15.4) g/dL Hct 34.0 L (35.3-44.9) % Plt Count 229 (140-400) K/mcL Neutrophils # 10.5 H (1.6-8.9) K/mcL - Impressions Impressions Ankle MRI 03/29/17 08:41 IMPRESSION: Large tibiotalar joint effusion with distention of the posterior subtalar recess and synovial enhancement. No evidence of osteomyelitis. Consider aspiration if there is strong clinical concern for septic arthritis. D/ / 03/29/2017 12:05:21 Dakota May MD / denys Interpreting Provider: Dakota May MD - Attending Attestation I examined this patient and my medical decision-making was reviewed with the Resident Physician on 03/29/17. I agree with the documented findings, disposition and treatment plan as described except to the extent set forth below. Ms. Camejo is currently admitted for presumed meningitis and L ankle pain and effusion. She remains moderate to high risk due to potential for worsening neuro and infectious status. Ms. Camejo still has a lot of L ankle pain. No CP or SOB. No cough or fever. Exam Alert. Comfortable Heart reg No wheeze Decreased ROM L ankle I/P 1. L ankle pain - MRI ordered 2. Possible meningitis Further diagnosis and plan as above.
--- NOTE | 2017-03-29 08:50 | Rheumatology Consult Note ---
<Rony Horn - Last Filed: 03/29/17 13:43> Date of Encounter: 03/29/17 Time of Encounter: 08:15 Rheumatology Assess and Plan (1) Left ankle pain Current Visit: Yes Status: Acute - Erythema, swelling and tenderness at lateral side of left ankle. - Unknown etiology at this time. Differential include inflammatory vs. infectious. - CRP 91, ESR 15, RF <15, uric acid 2.5. Pending CCP. - GC/gonorrhoeae & viral hepatitis negative. Other infectious work-up including blood & CSF culture are negative so far. - MRI of left ankle found large tibiotalar joint effusion but no evidence of osteomyelitis. - Left ankle arthocentesis was attempted but no synoval fluid obtained. - Given concern of septic arthritis, continue prophylactic antibiotics as recommended by ID. - Consider orthopedic consult for further evaluation. Qualifiers: Chronicity: acute Qualified Code(s): M25.572 - Pain in left ankle and joints of left foot Rheumatology HPI Consult date: 03/29/17 Requesting physician: Laith Aguirre Consult reason: Left ankle arthritis Chief complaint: Multiple joint pain History of present illness: Ms. Camejo is a 22 year old female with PMH of endometriosis. Patient presented with complaint of polyarthralgia and found to be tachycardic with leukocytosis in ED. Patient was admitted on 03/27/17 for the concern of meningitis. Lumbar puncture on admission found colorless clear CSF with 12 total nucleated cells (55% seg neutrophils & 43% lymphocyte), glucose 52 and total protein 19. Patient was started on antibiotics including vancomycin, ceftriaxone and doxycycline. Rheumatology was consulted on 03/29/17 for the possible autoimmune etiology of patient's left ankle arthritis. Patient reports her symptoms started as right hand pain between thumb & index finger on 03/26/17 and then back pain and left ankle pain. The right hand pain has resolved since admission but she still has significant left ankle pain, erythema and swelling, mostly at lateral side. Patient states having right hand stiffness for years but the right hand pain & left ankle pain are new to her. Patient has erythema and swelling at left ankle but no at right hand. Patient also reports worst joint pain and stiffness in the morning but improves within minutes as she started to move those joints. Patient also has some neck stiffness and back pain but thinks those are likely due to lying on bed for long time. Patient has headache at top of head and it's similar to what she had in the past. Patient had pinpoint rashes affecting abdomen, thighs & legs prior to admission but that has been almost completely resolved today. Patient denies vision change, eye redness or pain, hearing change, numbness/tingling, focal weakness, shortness of breath, hemoptysis, chest pain, abdominal pain, nausea, vomiting, diarrhea, dysuria, hematuria, hematochezia, melena. Patient denies any known personal or family history of arthritis, autoimmune diseases, psoriasis or IBD. Patient denies known recent travel, sick contact or trauma/injury. Patient admits to be sexually active with one partner without protection and last one is one day prior to symptoms started. Patient does report having history of pneumonia & shingles in the past. Past Med Surg Social Fam HX - Past Medical History Medical history: other (endometriosis) Psychiatric history: anxiety, bipolar, depression - Past Surgical History Surgical History: no surgical history - Social History Smoking Status: Former smoker Smokeless Tobacco Status: No Alcohol use: none Drug use: none Medications and Allergies Ibuprofen [Motrin] 600 mg PO Q6HR PRN #30 tab 03/26/17 [Rx] Nitrofurantoin Monohyd/M-Cryst [Macrobid 100 mg Capsule] 100 mg PO BID #20 capsule 03/26/17 [Rx] cephALEXin [Keflex] 500 mg PO BID 03/27/17 [History] Allergies diphenhydramine [From Benadryl] Adverse Reaction (Verified 03/27/17 20:11) Agitated All Systems Review: A 10-system review of systems was performed and is negative for pertinent findings except as documented above in the HPI. Review of Systems: Patient denies vision change, eye redness or pain, hearing change, numbness/ tingling, focal weakness, shortness of breath, hemoptysis, chest pain, abdominal pain, nausea, vomiting, diarrhea, dysuria, hematuria, hematochezia, melena Rheumatology Exam Vital Signs, Last 4 Hours Temp Pulse Resp BP 03/29/17 07:09 98.6 F 88 15 103/70 Exam: Head exam: atraumatic, normocephalic Eye exam: EOMI, PERRL, sclera anicteric, no redness noted. ENT exam: Mucous membranes moist Neck exam: Full ROM. No meningismus. No cervical lymphadenopathy noted. Respiratory exam: CTAB, no wheezes, rales or rhonchi. Cardiovascular exam: RRR, +S1, +S2, no murmurs. GI/Abdominal exam: soft, non-tender, positive bowel sounds. No splenomegaly or hepatomegaly noted. Extremities exam: Joint swelling & tenderness at lateral side of the left ankle. Back exam: Some upper thoracic vertebral tenderness. Neurological exam: Present: alert, oriented X3. No focal deficits Skin exam: On few pinpoint rash noted on bilateral lower extremities. Per patient, this is significantly improved compared to yesterday. Rheumatology Results 03/29/17 05:52 03/28/17 04:05 Immunology Rheumatoid Factor < 15 IU/mL (0-29) 03/29/17 05:52 All other labs normal. Consult Discharge Plan - Plan Referrals: NO,PCP [Primary Care Provider] - <Abdiel Talamantes - Last Filed: 03/29/17 17:57> Date of Encounter: 03/29/17 Rheumatology HPI History of present illness: Ms. Camejo is a 22 year old female All Systems Review: A 10-system review of systems was performed and is negative for pertinent findings except as documented above in the HPI. Rheumatology Exam Vital Signs, Last 4 Hours Temp Pulse Resp BP 03/29/17 15:21 98.3 F 83 17 92/65 Rheumatology Results 03/29/17 05:52 03/28/17 04:05 Immunology Rheumatoid Factor < 15 IU/mL (0-29) 03/29/17 05:52 All other labs normal. - Attending Attestation I examined this patient and my medical decision making was reviewed with the resident physician. I agree with the documented findings, disposition and treatment as described with these exceptions. Qian Camejo is a 22 year old female with no past medical history who presents with arthralgias, neck pain and a monoarthritis of the left ankle. Serologic infectious workup, blood and CSF cultures negative. MR with effusion in ankle though mild on exam; moderate pain with ROM and erythema on lateral portion. Attempted aspiration was completed today without success. Given the acuity of this monoarthritis, infectious remains high on the differential. Unfortunately I was unsuccessful in aspiration today so fluid could not be obtained. Would recommend orthopedics evaluation and cover for infectious. Autoimmune workup pending; though present not as suspicious for autoimmune inflammatory arthritis given sudden swelling but this is possible. I discussed the risks of an arthrocentesis with the patient.consent was obtained. The area was cleansed and using an 18-gauge needle, I attempted to aspirate fluid. I was unable to have a return. Bandaid applied and no immediate complications.
[2017-03-29] MEDS: Loratadine 10 MG TABLET PO SCH (08:55)
[2017-03-29] MEDS: Doxycycline 100 MG CAPSULE PO SCH ×2 (08:55→20:43)
[2017-03-29 10:06] LABS: Hepatitis A Antibody IgM Nonreactive (Nonreactive); Hepatitis B Core IgM Nonreactive (Nonreactive); Hepatitis C Virus Antibody Nonreactive (Nonreactive)
[2017-03-29] MEDS: traMADol 50 MG TABLET PO PRN (10:06)
--- NOTE | 2017-03-29 11:43 | Infectious Disease Progress No ---
Date of Encounter: 03/29/17 Time of Encounter: 11:41 - Assessment and Plan (1) Sepsis Current Visit: Yes Status: Acute The patient had two SIRS criteria on admission. Likely secondary to aseptic meningitis, but given the patient's other symptoms, need to rule out additional etiologies. Improved. WBC still elevated, but down to 13 from 18 on admission. Still having intermittent tachycardia. Blood cultures drawn 03/27/17 are NGTD x 2 sets. Urine culture 03/26/17 negative. Concern for tick-borne illness, even though there is no obvious exposure history and no target lesion. The clinical and lab presentation are not suggestive of Erlichia or Anaplasma or RMSF. Lyme antibody is negative. LFTs normal. The patient is not leukopenic. HIV and Hepatitis Panel are negative. Parvovirus IgG and IgM are pending. RIP not collected. Discussed with nursing. ESR normal at 15. CRP elevated at 91. Qualifiers: Qualified Code(s): A41.9 - Sepsis, unspecified organism (2) Meningitis Current Visit: Yes Status: Acute Aseptic meningitis. CSF gram stain and cultures are negative. Status post LP with 12 TNC with 55% segmented neutrophils and 43% lymphocytes. Glucose and Protein normal. Patient reports a headache with some neck pain this morning. Continue supportive care. (3) Left ankle pain Current Visit: Yes Status: Acute Etiology unclear. X-ray unremarkable. Rheumatology consulted and following. Appreciate recommendations. MRI scheduled for later today. Await results. Lyme antibody negative. ESR normal. CRP elevated at 91. Qualifiers: Qualified Code(s): M25.572 - Pain in left ankle and joints of left foot - Subjective Interval history: Patient seen and examined. No acute events noted overnight. Patient resting quietly in bed with family at the bedside. States that overall she feels better today. Denies any fevers or chills. Denies chest pain, shortness of breath, or cough. Denies nausea, vomiting, diarrhea, or constipation. Denies abdominal pain and states her appetite is okay. Denies oral thrush or new skin lesions. States the pain in her hands is now more of a stiffness and is better since doing some ROM exercises this morning. She also reports the pain in her left ankle is improved and she is able to walk on it this morning. Infect Dis PN-Objective Data - Labs CBC & Chem 7: 03/29/17 05:52 03/28/17 04:05 Labs: Laboratory Results - last 24 hr 03/28/17 03/29/17 03/29/17 11:42 05:52 05:52 WBC 13.2 H RBC 3.94 Hgb 11.2 L Hct 34.0 L MCV 86.3 MCH 28.4 MCHC 32.9 RDW 12.2 Plt Count 229 MPV 9.7 Immature Gran % 0.5 Seg Neutrophils % 79.6 Lymphocytes % 11.5 Monocytes % 6.9 Eosinophils % 1.3 Basophils % 0.2 Neutrophils # 10.5 H Lymphocytes # 1.5 Monocytes # 0.9 Eosinophils # 0.2 Basophils # 0.0 Uric Acid Vancomycin Trough < 0.4 L Rheumatoid Factor Chlam trachomat DNA PCR NOT DETECTED Hepatitis A IgM Ab Hep Bs Antigen Hep B Core IgM Ab Hepatitis C Ab Screen N.gonorrhoeae DNA (PCR) NOT DETECTED 03/29/17 03/29/17 05:52 05:52 WBC RBC Hgb Hct MCV MCH MCHC RDW Plt Count MPV Immature Gran % Seg Neutrophils % Lymphocytes % Monocytes % Eosinophils % Basophils % Neutrophils # Lymphocytes # Monocytes # Eosinophils # Basophils # Uric Acid 2.5 L Vancomycin Trough Rheumatoid Factor < 15 Chlam trachomat DNA PCR Hepatitis A IgM Ab Nonreactive Hep Bs Antigen Nonreactive Hep B Core IgM Ab Nonreactive Hepatitis C Ab Screen Nonreactive N.gonorrhoeae DNA (PCR) Cultures: Serology 03/29/17 03/28/17 Range/Units 05:52 11:42 Chlam trachomat DNA PCR NOT DETECTED (Not Detect) Hepatitis A IgM Ab Nonreactive (Nonreactive) Hep Bs Antigen Nonreactive (Nonreactive) Hep B Core IgM Ab Nonreactive (Nonreactive) Hepatitis C Ab Screen Nonreactive (Nonreactive) N.gonorrhoeae DNA (PCR) NOT DETECTED (Not Detect) - Impressions Impressions Ankle MRI 03/29/17 08:41 IMPRESSION: Large tibiotalar joint effusion with distention of the posterior subtalar recess and synovial enhancement. No evidence of osteomyelitis. Consider aspiration if there is clinical concern for septic arthritis. D/ / Dakota May MD / Dakota May MD Interpreting Provider: Dakota May MD Exam - Constitutional Vitals: Temp Pulse Resp BP Pulse Ox 98.6 F 88 15 103/70 97 03/29/17 07:09 03/29/17 07:09 03/29/17 07:09 03/29/17 07:09 03/29/17 03:14 General appearance: average body habitus, cooperative, no acute distress - Head Head exam: Present: atraumatic, normal inspection, normocephalic - Eye Eye exam: Present: EOMI, normal appearance, PERRL Pupils: Present: normal accommodation - ENT ENT exam: Present: mucous membranes moist - Neck Neck exam: Present: normal inspection - Respiratory Respiratory exam: Present: CTAB. Absent: rales, respiratory distress, rhonchi, wheezes - Cardiovascular Cardiovascular exam: Present: +S1, +S2, tachycardia. Absent: irregular rhythm - GI/Abdominal GI/Abdominal exam: Present: normal bowel sounds, soft. Absent: distended, tenderness - Extremities Exam Extremities exam: Present: joint swelling (Mild, left ankle.), normal inspection , tenderness (Mild, left ankle.) - Neurological Exam Neurological exam: Present: alert, oriented X3, no focal deficits - Psychiatric Psychiatric exam: Present: normal affect, normal mood - Skin Skin exam: Present: dry, intact, normal color, warm Consult Discharge Plan - Plan Referrals: NO,PCP [Primary Care Provider] - - Attending Attestation I examined this patient and my medical decision-making was reviewed with the STORE SALES CONSULTANT/PA/Advanced Practice Nurse/Resident Physician. I agree with the documented findings, disposition and treatment plan as described except to the extent set forth below.
[2017-03-29] MEDS ORDERED: *HR* LORazepam 2 MG/ML VIAL IVP ONE ×2 (13:14→17:26)
[2017-03-29 17:55] LABS: Adenovirus Not Detected (Not Detect); Bordetella Pertussis Not Detected (Not Detect); Chlamydophila pneumoniae Not Detected (Not Detect); Coronavirus 229E Not Detected (Not Detect); Coronavirus HKU1 Not Detected (Not Detect); Coronavirus NL63 Not Detected (Not Detect); Coronavirus OC43 Not Detected (Not Detect); Human Metapneumovirus Not Detected (Not Detect); Human Rhinovirus/Enterovirus Not Detected (Not Detect); Influenza A Subtype 2009 H1 Not Detected (Not Detect); Influenza A Untypeable Not Detected (Not Detect); Influenza B Not Detected (Not Detect); Mycoplasma pneumoniae Not Detected (Not Detect); Parainfluenza Virus 1 Not Detected (Not Detect); Parainfluenza Virus 2 Not Detected (Not Detect); Parainfluenza Virus 3 Not Detected (Not Detect); Parainfluenza Virus 4 Not Detected (Not Detect); Respiratory Syncytial Virus Not Detected (Not Detect)
--- NOTE | 2017-03-29 18:27 | Procedure Note ---
Date of procedure: 03/29/17 Pre-op diagnosis: Septic arthritis left ankle Post-op diagnosis: same Procedure: #1 Arthrocentesis left ankle. Details in summary of procedure: After thorough discussion of the anticipated procedure we discussed the risks versus benefits as well as alternatives to arthrocentesis. Informed consent was obtained Timeout was performed. The patient was then properly positioned safely securely. The left foot was then placed on sterile towel. Left anterolateral aspect of the ankle was prepped with alcohol 3 times and Betadine 3 times under sterile conditions local anesthetic was achieved with subcutaneous infiltration of anesthesia consisting of 3 mL mix of Marcaine plain 0.25% and 1 mL of 1% lidocaine with epinephrine. Successful anesthesia was achieved. Then using a sterile 22-gauge Angiocath needle the joint was entered and arthrocentesis was complete by withdrawing approximate 3-4 mL of a turbid joint fluid. Dry sterile dressing was applied over the site of arthrocentesis. The needle was then removed. Proper technique discarded and a sterile cap was placed over the syringe. The syringe/ fluid was then properly identified with patient identification protocol, name date and time and location, placed in a biohazard bag and will be sent for appropriate testing per Dr. Almonte/ Infectious Disease Service recommendations Surgeon: Florentin Olson Estimated blood loss (cc): 0 IV fluids (cc): 0 Urine output (cc): 0 Pathology: other (Recommendations/testing per Dr. Almonte/ Infectious Disease Service for evaluation of joint fluid) Condition: stable Disposition: floor
[2017-03-29 18:49] LABS: Source,Synovial Fluid LFT ANKLE
[2017-03-29 21:52] LABS: Appearance,Synovial Fluid Hazy (Clear-Hazy); Color,Synovial Fluid Straw (Straw)
[2017-03-30] MEDS: traMADol 50 MG TABLET PO PRN (04:01)
[2017-03-30 04:39] LABS: Basophils % 0.2 %; Eosinophils # 0.2 K/mcL (0.0-0.6); Eosinophils % 1.6 %; Hematocrit 36.5 % (35.3-44.9); Hemoglobin 11.7 g/dL (11.5-15.4); Immature Granulocytes % 0.3 % (0-4); Immature Platelets 3.7 % (1.1-6.1); Lymphocytes # 2.8 K/mcL (0.6-4.6); Lymphocytes % 23.7 %; Mean Corpuscular HGB Conc 32.1 g/dL (31.6-35.5); Mean Corpuscular Hemoglobin 27.8 pg (28.0-33.3); Mean Corpuscular Volume 86.7 fL (83.0-100.0); Mean Platelet Volume 10.2 fL (9.4-12.4); Monocytes # 0.9 K/mcL (0.0-1.3); Monocytes % 7.8 %; Neutrophils # 7.7 K/mcL (1.6-8.9); Platelet Count 282 K/mcL (140-400); Red Blood Count 4.21 M/mcL (3.82-4.97); Red Cell Distribution Width 12.1 % (11.5-14.5); Segmented Neutrophils % 66.4 %
[2017-03-30] MEDS: *HR* Enoxaparin 40 MG/0.4 ML SYRINGE SQ SCH (06:12)
[2017-03-30] MEDS: Loratadine 10 MG TABLET PO SCH (09:31)
[2017-03-30] MEDS: Doxycycline 100 MG CAPSULE PO SCH (09:31)
[2017-03-30 10:33] LABS: Borrelia burgdorferi Abs CSF 0.03 LIV (<=0.99)
[2017-03-30] MEDS: Ondansetron ODT 4 MG TAB.RAPDIS SL PRN ×2 (11:23→17:58)
[2017-03-30 14:48] VITALS: BP 108/75
--- NOTE | 2017-03-30 17:31 | Discharge Summary ---
Date of Encounter: 03/30/17 Time of Encounter: 14:00 - Discharge Diagnosis (1) Sepsis Priority: Primary Status: Resolved Qualifiers: Sepsis type: sepsis due to unspecified organism Qualified Code(s): A41.9 - Sepsis, unspecified organism (2) Meningitis Priority: Secondary Status: Ruled-out (3) Left ankle pain Priority: Primary Status: Acute Qualifiers: Chronicity: acute Qualified Code(s): M25.572 - Pain in left ankle and joints of left foot (4) Left ankle effusion Priority: Primary Status: Acute (5) Tachycardia Priority: Secondary Status: Acute - Discharge Medications Prescriptions: Ibuprofen [Motrin] 600 mg PO Q6HR PRN #30 tab PRN Reason: Pain Ondansetron ODT [Zofran ODT] 4 mg SL Q6HR PRN #20 tab.rapdis PRN Reason: Nausea And Vomiting Cefdinir [Omnicef] 300 mg PO BID #7 capsule Doxycycline 100 mg PO BID #7 capsule Home Medications: Cefdinir [Omnicef] 300 mg PO BID #7 capsule 03/30/17 [Rx] Doxycycline 100 mg PO BID #7 capsule 03/30/17 [Rx] Ibuprofen [Motrin] 600 mg PO Q6HR PRN #30 tab 03/30/17 [Rx] Loratadine [Claritin] 5 mg PO DAILY tablet 03/30/17 [Rx] Ondansetron ODT [Zofran ODT] 4 mg SL Q6HR PRN #20 tab.rapdis 03/30/17 [Rx] Allergies/Adverse Reactions: Allergies diphenhydramine [From Benadryl] Adverse Reaction (Verified 03/27/17 20:11) Agitated Procedures/tests Complete & Pending: Procedures Performed prior 72 hours Category Date Time Status MR ankle LT wo/w con [MR] Stat MRI 03/29/17 08:41 Completed ECG 12 lead ECG [ECG] Stat Y 03/30/17 08:27 Ordered EV echocardiogram Routine Y 03/30/17 09:28 Completed Date of admission: 03/28/17 00:53 Primary care physician: PCP NO Consults: 03/28/17 16:09 Consult to Physician [CONS] Routine Consulting Provider: Abdiel Talamantes Reason for Consult: possible autoimmune disease, severe pain in left lateral malleolus, pinpoint rash on b/l LE and mid abd Call Completed: Yes 03/29/17 13:41 Consult to Podiatry [CONS] Routine Consulting Provider: [facility] Reason for Consult: left ankle larger tibiotalar joint effusion, aspiration needed to r/o septic joint Time Notified: 13:42 Call Completed: Yes Discharging clinician: Jesus Wise Anticipated date of discharge: 03/30/17 - Patient Status Disposition: Home, Self-Care Condition: Good Functional capacity at discharge: independent ambulation Overall status at discharge: patient is progressing back to baseline - Discharge Instructions Follow Up With: NO,PCP [Primary Care Provider] - Additional Instructions: Follow with primary care doctor in [address] Almonte in 1 week - Diet and Activity Activity: resume usual activities as tolerated Diet: advance to your usual diet Hospital course: Ms. Camejo is a 22 year old female with no history presented to ED due to neck stiffness and L ankle pain. She also stated she had a diffuse rash. She was evaluated in ED and had LP and admitted. Ms. Camejo was admitted to [facility]. She was started on broad spectrum abx to cover meningitis. Her LP culture was negative. She was evaluated by ID and rheumatology due to joint discomfort and concern for another process. All testing to date has been essentially negative. She underwent MRI of L ankle and found large effusion. She had aspiration of joint with neg culture thus far. She has steadily improved and is ready for discharge home on PO abx with outpatient follow up. - Time Spent with Patient Total time spent providing and/or coordinating discharge services: 42min - Constitutional Vitals: Temp Pulse Resp BP Pulse Ox 98.4 F 100 18 108/75 99 03/30/17 14:41 03/30/17 14:41 03/30/17 14:41 03/30/17 14:41 03/30/17 14:41 General appearance: Present: cooperative, A&O X 3, pleasant, no acute distress, answers questions appropriately - Head Head exam: Present: normocephalic - Eye Eye exam: Present: EOMI, conjuntiva pink - ENT ENT exam: Present: mucous membranes moist - Respiratory Respiratory exam: Present: CTAB. Absent: tachypnea - Cardiovascular Cardiovascular exam: Present: RRR, tachycardia - GI/Abdominal GI/Abdominal exam: Present: soft. Absent: tenderness - Extremities Exam Extremities exam: Present: tenderness, warm - Neurological Exam Neurological exam: Present: alert, oriented X3
[2017-03-30] MEDS ORDERED: Doxycycline 100 MG CAPSULE PO ONE (17:41)
[2017-03-30] MEDS ORDERED: Cefdinir 300 MG CAPSULE PO ONE (17:42)
[2017-03-30] MEDS: Ibuprofen 400 MG TABLET PO PRN (17:58)
[2017-04-01 08:34] LABS: Cytomegalovirus DNA (PCR) NOT DETECTED
[2017-04-01 08:46] LABS: ANA IgG by ELISA NONE DETECTED (None Detected); Parvovirus B19, IgG 5.66 IV (<=0.89); Parvovirus B19, IgM 0.14 IV (<=0.89)
[2017-04-02 08:13] LABS: HSV 1 Glycoprotein G IgG CSF 0.07 IV (<=0.89); HSV 2 Glycoprotein G IgG CSF 0.03 IV (<=0.89)
[2017-04-06 15:19] LABS: Echovirus Antibody Type 11 CSF <1:10 (<1:10); Echovirus Antibody Type 7 CSF <1:10 (<1:10); Echovirus Antibody Type 9 CSF <1:10 (<1:10)
[2017-04-07 11:01] LABS: Echovirus Antibody Type 30 CSF <1:10 (<1:10)
== END 2017-03-30 19:31 | disposition home or self-care (01) | DRG 720 ==
LOC: 2NENU 13:03 → EMEROO 13:03 → 2NENU 19:57
PROVIDERS: ADMIT Registered Nurse; ATTEND Internal Medicine

== ENCOUNTER 2018-01-04 04:51 | Inpatient (IN) ==
[2018-01-04] MEDS ORDERED: Ondansetron ODT 4 MG TAB.RAPDIS SL ONE (05:11)
[2018-01-04] MEDS ORDERED: Ondansetron 4 MG/2 ML VIAL IVP ONE ×2 (05:23→06:32)
[2018-01-04] MEDS ORDERED: 0.9 % Sodium Chloride 1,000 ML IVC ONE ×2 (05:23→10:16)
[2018-01-04] MEDS ORDERED: *HR* FentaNYL (PF) 100 MCG/2 ML VIAL IVP ONE ×2 (05:24→06:32)
--- NOTE | 2018-01-04 05:40 | Emergency Department Note ---
Disposition Clinical Impression: Status post hysteroscopy Abdominal pain Qualifiers: Abdominal location: generalized Qualified Code(s): R10.84 - Generalized abdominal pain Disposition: Admitted As Inpatient Condition: Good Referrals: NONE,PCP [Primary Care Provider] - Forms: ED Satisfaction Letter, Work/School Release Time of Disposition: 06:31 Abdominal Pain HPI - General Chief Complaint: ED Abdominal Pain Stated Complaint: abdominal pain/vomiting Time Seen by Provider: 01/04/18 05:04 Source: patient Nursing Notes Reviewed: Yes Vital Signs Reviewed: Yes - History of Present Illness Pt Subjective Complaint: abdominal pain 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 Denies: diarrhea, fever , constipation, dysuria, hematemesis Treatments prior to arrival: NSAIDs - Related Data Home Medications Medication Instructions Recorded Confirmed Nitrofurantoin Monohyd/M-Cryst 100 mg PO BID 01/02/18 01/02/18 [Macrobid 100 mg Capsule] Previous Rx's Medication Instructions Recorded Ibuprofen [Motrin] 600 mg PO Q6HR PRN #60 tab 01/02/18 Allergies Allergy/AdvReac Type Severity Reaction Status Date / Time diphenhydramine AdvReac NAUSEA/VOMI Verified 01/04/18 04:58 [From Benadryl] TING All systems ED: reviewed and negative except as stated. Review of Systems: As Per HPI Constitutional: Reports: as per HPI Eyes: Denies: eye pain ENT ED: Denies: ear pain Cardiovascular: Denies: chest pain, palpitations Respiratory: Denies: cough, dyspnea Gastrointestinal: Reports: as per HPI. Denies: diarrhea, constipation Genitourinary: Denies: dysuria Musculoskeletal: Denies: back pain Integumentary: Denies: rash Neurological: Denies: weakness Endocrine: Denies: fatigue Hematological/Lymphatic: Denies: easy bleeding Allergic/Immunologic: Denies: facial swelling Abdominal Pain PMH - Past Medical History Medical history: Reports: other Female Surgical History: Reports: Adenoidectomy, Tonsillectomy [employer]IVER history: Reports: endometriosis Psychiatric history: Reports: anxiety, bipolar, depression - Social History Smoking status: Never smoker Alcohol use: Reports: none Drug use: Reports: none Physical Exam - General Limitations: no limitations General appearance: alert, in no apparent distress - Head Head exam: normocephalic - Eye Eye exam: Present: EOMI. Absent: conjunctival injection - ENT ENT exam: mucous membranes moist - Neck Neck exam: Present: full ROM - Chest Chest inspection: Present: symmetric chest wall rise - Respiratory Respiratory exam: Present: normal lung sounds bilaterally. Absent: respiratory distress - Cardiovascular Cardiovascular exam: Present: regular rate, normal rhythm - Abdominal Exam Abdominal exam: Present: soft, tenderness Abdominal tenderness: Present: diffuse - Extremities Exam Extremities exam: Present: normal inspection, full ROM, normal capillary refill - Back Exam Back exam: Present: full ROM - Neurological Exam Neurological exam: Present: alert - Psychiatric Psychiatric exam: Present: normal affect, normal mood - Skin Skin exam: Present: warm, dry, intact, normal color. Absent: rash, cyanosis, diaphoresis Course Course Narrative: Patient is a 22-year-old A1 that presents with diffuse abdominal pain, she compares it to labor contractions. She is approximately 2 days status post hysteroscopically, performed by Dr. crouch. She states after the procedure she had improved pain, she had worsening abdominal pain that started just prior to arrival. She states it woke her from sleep. She describes it as diffuse, achy. It does not migrate, does not radiate. She mentioned she has had chills, nausea and vomiting. She denies any cough, vaginal bleeding or vaginal discharge. Prescribed ibuprofen has not been helping. Pt seen and examined. Analgesics and antiemetics ordered. Workup ordered. - Reevaluation(s) Reevaluation #1: At this time, due to shift change care of this patient will be transferred to day shift provider Richard Decker CNP. Please see his further documentation for details. Pt nausea improved. Pt states minimal relief after IV analgesics. Vitals stable and within limits. Discussed patient with Richard. Plan will be to consult [employer]A [employer]. At this time I feel patient may be admitted due to pain and recent procedure. However, please see Richard's documentation for final details and disposition. Time: 06:00 Vital Signs Temperature 98.1 F 01/04/18 04:55 Pulse Rate 92 01/04/18 04:55 Respiratory Rate 16 01/04/18 04:55 Blood Pressure 117/84 01/04/18 04:55 O2 Sat by Pulse Oximetry 99 01/04/18 04:55 Temperature 98.1 F 01/04/18 04:55 Pulse Rate 92 01/04/18 04:55 Respiratory Rate 16 01/04/18 04:55 Blood Pressure 117/84 01/04/18 04:55 O2 Sat by Pulse Oximetry 99 01/04/18 04:55 Oxygen Delivery Oxygen Delivery Room Air Abdominal Pain - Lab Data Result diagrams: 01/04/18 05:44 01/04/18 05:44 Lab Results 01/04/18 01/04/18 01/04/18 Range/Units 05:03 05:03 05:44 WBC 19.7 H (4.3-11.1) K/mcL RBC 5.32 H (3.82-4.97) M/mcL Hgb 14.7 (11.5-15.4) g/dL Hct 45.6 H (35.3-44.9) % MCV 85.7 (83.0-100.0) fL MCH 27.6 L (28.0-33.3) pg MCHC 32.2 (31.6-35.5) g/dL RDW 13.3 (11.5-14.5) % Plt Count 280 (140-400) K/mcL MPV 9.9 (9.4-12.4) fL Immature Gran % 0.6 (0-4) % Seg Neutrophils % 85.2 % Lymphocytes % 10.1 % Monocytes % 3.5 % Eosinophils % 0.4 % Basophils % 0.2 % Neutrophils # 16.8 H (1.6-8.9) K/mcL Lymphocytes # 2.0 (0.6-4.6) K/mcL Monocytes # 0.7 (0.0-1.3) K/mcL Eosinophils # 0.1 (0.0-0.6) K/mcL Basophils # 0.0 (0.0-0.2) K/mcL Sodium (136-145) mEq/L Potassium (3.5-5.1) mEq/L Chloride (98-107) mEq/L Carbon Dioxide (23-29) mEq/L BUN (6-20) mg/dL Creatinine (0.60-1.20) mg/dL Est GFR ( Amer) (> 60) Est GFR (Non-Af Amer) (> 60) BUN/Creatinine Ratio (6-26) Glucose (70-105) mg/dL Calculated Osmolality (280-300) Calcium (8.6-10.3) mg/dL Total Bilirubin (0.3-1.0) mg/dL Direct Bilirubin (0.0-0.2) mg/dL Indirect Bilirubin (0.0-1.2) mg/dL AST (13-39) Units/L ALT (7-52) Units/L Alkaline Phosphatase (34-104) Units/L Serum Total Protein (6.4-8.9) g/dL Albumin (3.5-5.7) g/dL Globulin (2.4-3.5) g/dL Albumin/Globulin Ratio (1.1-2.2) Lipase (11-82) Units/L Urine Color Yellow (Yellow) Urine Clarity Cloudy A (Clear) Urine pH 6.0 (5.0-8.0) pH Units Ur Specific [place] 1.027 H (1.010-1.025) Urine Protein Trace (Neg-Trace) mg/dL Urine Glucose (UA) Normal (Normal) mg/dL Urine Ketones Negative (Negative) mg/dL Urine Blood Large H (Negative) Urine Nitrite Negative (Negative) Urine Bilirubin Negative (Negative) Urine Urobilinogen Normal (Normal) mg/dL Ur Leukocyte Esterase Negative (Negative) Urine Microscopic RBC 0-3 (0-3) per hpf Urine Microscopic WBC 5-15 H (0-3) per hpf Ur Squamous Epith Cells Many H (None-Few) per lpf Urine Bacteria Many H (None-Few) per hpf Hyaline Casts Few (None-Few) per lpf Urine Mucus Many H (Few) Ur Culture Indicated? NO (NO) Urine Test Negative (Negative) 01/04/18 Range/Units 05:44 WBC (4.3-11.1) K/mcL RBC (3.82-4.97) M/mcL Hgb (11.5-15.4) g/dL Hct (35.3-44.9) % MCV (83.0-100.0) fL MCH (28.0-33.3) pg MCHC (31.6-35.5) g/dL RDW (11.5-14.5) % Plt Count (140-400) K/mcL MPV (9.4-12.4) fL Immature Gran % (0-4) % Seg Neutrophils % % Lymphocytes % % Monocytes % % Eosinophils % % Basophils % % Neutrophils # (1.6-8.9) K/mcL Lymphocytes # (0.6-4.6) K/mcL Monocytes # (0.0-1.3) K/mcL Eosinophils # (0.0-0.6) K/mcL Basophils # (0.0-0.2) K/mcL Sodium 138 (136-145) mEq/L Potassium 3.3 L (3.5-5.1) mEq/L Chloride 105 (98-107) mEq/L Carbon Dioxide 24 (23-29) mEq/L BUN 16 (6-20) mg/dL Creatinine 0.70 (0.60-1.20) mg/dL Est GFR ( Amer) > 60 (> 60) Est GFR (Non-Af Amer) > 60 (> 60) BUN/Creatinine Ratio 23 (6-26) Glucose 93 (70-105) mg/dL Calculated Osmolality 287 (280-300) Calcium 9.8 (8.6-10.3) mg/dL Total Bilirubin 0.3 (0.3-1.0) mg/dL Direct Bilirubin 0.1 (0.0-0.2) mg/dL Indirect Bilirubin 0.2 (0.0-1.2) mg/dL AST 19 (13-39) Units/L ALT 17 (7-52) Units/L Alkaline Phosphatase 52 (34-104) Units/L Serum Total Protein 7.5 (6.4-8.9) g/dL Albumin 4.8 (3.5-5.7) g/dL Globulin 2.7 (2.4-3.5) g/dL Albumin/Globulin Ratio 1.8 (1.1-2.2) Lipase 19 (11-82) Units/L Urine Color (Yellow) Urine Clarity (Clear) Urine pH (5.0-8.0) pH Units Ur Specific [place] (1.010-1.025) Urine Protein (Neg-Trace) mg/dL Urine Glucose (UA) (Normal) mg/dL Urine Ketones (Negative) mg/dL Urine Blood (Negative) Urine Nitrite (Negative) Urine Bilirubin (Negative) Urine Urobilinogen (Normal) mg/dL Ur Leukocyte Esterase (Negative) Urine Microscopic RBC (0-3) per hpf Urine Microscopic WBC (0-3) per hpf Ur Squamous Epith Cells (None-Few) per lpf Urine Bacteria (None-Few) per hpf Hyaline Casts (None-Few) per lpf Urine Mucus (Few) Ur Culture Indicated? (NO) Urine Test (Negative)
[2018-01-04 05:49] LABS: Bilirubin,Urine Negative (Negative); Blood,Urine Large (Negative); Clarity,Urine Cloudy (Clear); Color,Urine Yellow (Yellow); Glucose,Urine (UA) Normal (Normal); Ketones,Urine Negative (Negative); Leukocyte Esterase,Urine Negative (Negative); Nitrite,Urine Negative (Negative); Protein,Urine Trace mg/dL (Neg-Trace); Specific Gravity,Urine 1.027 (1.010-1.025); Urobilinogen,Urine Normal (Normal)
[2018-01-04 05:52] LABS: Hyaline Casts,Urine Few per lpf (None-Few); Squamous Epithelial Cell,Urine Many per lpf (None-Few)
[2018-01-04 05:54] LABS: Basophils % 0.2 %; Eosinophils # 0.1 K/mcL (0.0-0.6); Eosinophils % 0.4 %; Hematocrit 45.6 % (35.3-44.9); Hemoglobin 14.7 g/dL (11.5-15.4); Immature Granulocytes % 0.6 % (0-4); Lymphocytes % 10.1 %; Mean Corpuscular HGB Conc 32.2 g/dL (31.6-35.5); Mean Corpuscular Hemoglobin 27.6 pg (28.0-33.3); Mean Corpuscular Volume 85.7 fL (83.0-100.0); Mean Platelet Volume 9.9 fL (9.4-12.4); Monocytes # 0.7 K/mcL (0.0-1.3); Monocytes % 3.5 %; Neutrophils # 16.8 K/mcL (1.6-8.9); Platelet Count 280 K/mcL (140-400); Red Blood Count 5.32 M/mcL (3.82-4.97); Red Cell Distribution Width 13.3 % (11.5-14.5); Segmented Neutrophils % 85.2 %
[2018-01-04 06:06] LABS: Bacteria,Urine Many per hpf (None-Few); Mucus,Urine Many (Few); RBC,Urine 0-3 per hpf (0-3)
[2018-01-04 06:22] LABS: Alanine Aminotransferase 17 Units/L (7-52); Albumin 4.8 g/dL (3.5-5.7); Albumin/Globulin Ratio 1.8 (1.1-2.2); Alkaline Phosphatase 52 Units/L (34-104); Aspartate Amino Transferase 19 Units/L (13-39); BUN/Creatinine Ratio 23 (6-26); Bilirubin,Direct 0.1 mg/dL (0.0-0.2); Bilirubin,Indirect 0.2 mg/dL (0.0-1.2); Bilirubin,Total 0.3 mg/dL (0.3-1.0); Blood Urea Nitrogen 16 mg/dL (6-20); Calcium 9.8 mg/dL (8.6-10.3); Carbon Dioxide 24 mEq/L (23-29); Chloride 105 mEq/L (98-107); Globulin 2.7 g/dL (2.4-3.5); Glucose 93 mg/dL (70-105); Lipase 19 Units/L (11-82); Osmolality,Calculated 287 (280-300); Potassium 3.3 mEq/L (3.5-5.1); Sodium 138 mEq/L (136-145); Total Protein 7.5 g/dL (6.4-8.9); eGFR For African Americans > 60 (> 60); eGFR For Non-African Americans > 60 (> 60)
--- NOTE | 2018-01-04 06:42 | Emergency Department Note ---
Disposition Clinical Impression: Status post hysteroscopy, Leukocytosis Abdominal pain Qualifiers: Abdominal location: generalized Qualified Code(s): R10.84 - Generalized abdominal pain Disposition: Admitted As Inpatient Condition: Fair Referrals: Leonor Vallejo MD [Partnered Physician] - Forms: ED Satisfaction Letter, Work/School Release Time of Disposition: 11:39 Abdominal Pain HPI - General Chief Complaint: ED Abdominal Pain Stated Complaint: abdominal pain/vomiting Time Seen by Provider: 01/04/18 05:04 Source: patient Mode of arrival: ambulatory Limitations: no limitations Nursing Notes Reviewed: Yes Vital Signs Reviewed: Yes - History of Present Illness Pt Subjective Complaint: abdominal pain Location: diffuse Pain Scale: 6 Quality: aching Migration to: no migration Improves with: nothing Worsens with: movement Context: recent surgery/procedure (hysterocopy 2 days ago) Associated symptoms: Reports: nausea, vomiting, chills. Denies: diarrhea, fever , constipation, dysuria, hematemesis - Related Data Home Medications Medication Instructions Recorded Confirmed Nitrofurantoin Monohyd/M-Cryst 100 mg PO BID 01/02/18 01/02/18 [Macrobid 100 mg Capsule] Previous Rx's Medication Instructions Recorded Ibuprofen [Motrin] 600 mg PO Q6HR PRN #60 tab 01/02/18 Allergies Allergy/AdvReac Type Severity Reaction Status Date / Time diphenhydramine AdvReac NAUSEA/VOMI Verified 01/04/18 04:58 [From Benadryl] TING Constitutional: Reports: as per HPI Eyes: Denies: eye pain ENT ED: Denies: ear pain Cardiovascular: Denies: chest pain, palpitations Respiratory: Denies: cough, dyspnea Gastrointestinal: Reports: as per HPI. 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 Absent: erythema, bleeding, tenderness, swelling, lesions Speculum Exam: Present: vaginal discharge (dark brown, appears as old blood). Absent: erythema, foreign body, tissue Bimanual Exam: Present: cervical motion tenderness, adnexal tenderness, uterine tenderness Course Course Narrative: 0600: I have assumed care of this patient from PEEWEE Holguin due to mid-level shift change. Please see Ezio's documentation for care performed prior to my arrival. Briefly, this is an alert and oriented nontoxic-appearing 22-year- old female that presented for complaints of diffuse abdominal pain, nausea, vomiting, and chills. She is 2 days status post hysteroscopy by Dr. Vallejo. Her abdominal pain is diffuse and does not migrate or radiate. She does state "I am currently being treated for a kidney infection, I am on Macrobid but I have forgotten to take it for the past 2 days". She denies any vaginal discharge but does complain of very scant vaginal bleeding which she describes as dark red in color. 0635: I spoke with GEE Ramos with OBGYN. At this point, she recommends against any advanced imaging such as CT or ultrasound. She does recommend performing a bimanual pelvic exam with cultures to rule out endometritis/PID. 0800: Dr. Vallejo visited the patient here in the emergency department. He did perform a bedside evaluation and had [id number] time with the patient. He recommends the acquisition of a transvaginal ultrasound prior to disposition. He believes that pending a negative ultrasound, that we will be able to discharge patient home with outpatient treatment. He recommends Flagyl 500 mg twice a day 14 days, doxycycline 100 mg twice a day 14 days, Macrobid 100 mg twice a day 10 days, and a one-time dose of Rocephin 250 mg IM here in the emergency department. Ultrasound has been ordered. Disposition pending. 0840: Dr. Vallejo contacted me again by telephone. He requested a CT of the abdomen and pelvis in addition to the ultrasound to further evaluate for the degree of hematuria present in her urinalysis. 0955: I spoke with Dr. Vallejo again regarding the patient's ultrasound and CT results. He states that as long as the patient feels well and off and that her nausea is under control, that she can be discharged home with outpatient treatment for a suspected endometritis. The patient does have a follow-up appointment scheduled with him for the near future. I discussed this patient's case with Dr. Raleigh Cheek. Dr. Raleigh Cheek has had a [id number] evaluation with the patient, reviewed her laboratory and radiology workup, and agrees with discharge home with treatment for suspected endometritis with oral Flagyl, doxycycline, and Macrobid, as she had an E.coli positive urinalysis on December 25 which had been treated with Macrobid however the patient failed to finish her entire prescribed course. Strict return precautions have been provided and the patient verbalizes an understanding of these precautions. 1130: I spoke with Dr. Vallejo again regarding the patient now being slightly hypotensive in the 90s over 60s and tachycardic in the 110's. He states that he does not believe that this is gynecological he related. He does suggest admission to the hospital service with PROBATION COUNSELOR consultation. He recommends the patient be started on broad-spectrum antibiotic such as Zosyn. I spoke with Dr. Butt, hospitalist television operator who has agreed to accept the patient for further observation and treatment. The patient will have PROBATION COUNSELOR consultation in house. - Reevaluation(s) Reevaluation #1: The patient was asleep when I entered the room to reevaluate her. After awakening her, she states that her symptoms have greatly improved. She states she feels well enough to be discharged home. Time: 10:05 Vital Signs Temperature 98.1 F 01/04/18 04:55 Pulse Rate 92 01/04/18 04:55 Respiratory Rate 16 01/04/18 04:55 Blood Pressure 117/84 01/04/18 04:55 O2 Sat by Pulse Oximetry 99 01/04/18 04:55 Temperature 98.1 F 01/04/18 04:55 Pulse Rate 104 01/04/18 10:53 Respiratory Rate 14 01/04/18 10:53 Blood Pressure 113/77 01/04/18 10:53 O2 Sat by Pulse Oximetry 99 01/04/18 10:53 Oxygen Delivery Oxygen Delivery Room Air Abdominal Pain - Medical Records Medical records reviewed: Yes I reviewed the patient's medical records. - Lab Data Lab results reviewed: Yes I reviewed the patient's lab results. Lab results narrative: Lab Results 01/04/18 01/04/18 01/04/18 Range/Units 05:03 05:03 05:44 WBC 19.7 H (4.3-11.1) K/mcL RBC 5.32 H (3.82-4.97) M/mcL Hgb 14.7 (11.5-15.4) g/dL Hct 45.6 H (35.3-44.9) % MCV 85.7 (83.0-100.0) fL MCH 27.6 L (28.0-33.3) pg MCHC 32.2 (31.6-35.5) g/dL RDW 13.3 (11.5-14.5) % Plt Count 280 (140-400) K/mcL MPV 9.9 (9.4-12.4) fL Immature Gran % 0.6 (0-4) % Seg Neutrophils % 85.2 % Lymphocytes % 10.1 % Monocytes % 3.5 % Eosinophils % 0.4 % Basophils % 0.2 % Neutrophils # 16.8 H (1.6-8.9) K/mcL Lymphocytes # 2.0 (0.6-4.6) K/mcL Monocytes # 0.7 (0.0-1.3) K/mcL Eosinophils # 0.1 (0.0-0.6) K/mcL Basophils # 0.0 (0.0-0.2) K/mcL Sodium (136-145) mEq/L Potassium (3.5-5.1) mEq/L Chloride (98-107) mEq/L Carbon Dioxide (23-29) mEq/L BUN (6-20) mg/dL Creatinine (0.60-1.20) mg/dL Est GFR ( Amer) (> 60) Est GFR (Non-Af Amer) (> 60) BUN/Creatinine Ratio (6-26) Glucose (70-105) mg/dL Calculated Osmolality (280-300) Lactic Acid (0.5-2.2) mmol/L Calcium (8.6-10.3) mg/dL Total Bilirubin (0.3-1.0) mg/dL Direct Bilirubin (0.0-0.2) mg/dL Indirect Bilirubin (0.0-1.2) mg/dL AST (13-39) Units/L ALT (7-52) Units/L Alkaline Phosphatase (34-104) Units/L Serum Total Protein (6.4-8.9) g/dL Albumin (3.5-5.7) g/dL Globulin (2.4-3.5) g/dL Albumin/Globulin Ratio (1.1-2.2) Lipase (11-82) Units/L Urine Color Yellow (Yellow) Urine Clarity Cloudy A (Clear) Urine pH 6.0 (5.0-8.0) pH Units Ur Specific Vernon 1.027 H (1.010-1.025) Urine Protein Trace (Neg-Trace) mg/dL Urine Glucose (UA) Normal (Normal) mg/dL Urine Ketones Negative (Negative) mg/dL Urine Blood Large H (Negative) Urine Nitrite Negative (Negative) Urine Bilirubin Negative (Negative) Urine Urobilinogen Normal (Normal) mg/dL Ur Leukocyte Esterase Negative (Negative) Urine Microscopic RBC 0-3 (0-3) per hpf Urine Microscopic WBC 5-15 H (0-3) per hpf Ur Squamous Epith Cells Many H (None-Few) per lpf Urine Bacteria Many H (None-Few) per hpf Hyaline Casts Few (None-Few) per lpf Urine Mucus Many H (Few) Ur Culture Indicated? NO (NO) Urine Test Negative (Negative) Kacy species DNA (Not Detect) Chlam trachomat DNA PCR (Not Detect) Gardnerella DNA Probe (Not Detect) N.gonorrhoeae DNA (PCR) (Not Detect) Trichomonas DNA Probe (Not Detect) 01/04/18 01/04/18 01/04/18 Range/Units 05:44 07:00 07:00 WBC (4.3-11.1) K/mcL RBC (3.82-4.97) M/mcL Hgb (11.5-15.4) g/dL Hct (35.3-44.9) % MCV (83.0-100.0) fL MCH (28.0-33.3) pg MCHC (31.6-35.5) g/dL RDW (11.5-14.5) % Plt Count (140-400) K/mcL MPV (9.4-12.4) fL Immature Gran % (0-4) % Seg Neutrophils % % Lymphocytes % % Monocytes % % Eosinophils % % Basophils % % Neutrophils # (1.6-8.9) K/mcL Lymphocytes # (0.6-4.6) K/mcL Monocytes # (0.0-1.3) K/mcL Eosinophils # (0.0-0.6) K/mcL Basophils # (0.0-0.2) K/mcL Sodium 138 (136-145) mEq/L Potassium 3.3 L (3.5-5.1) mEq/L Chloride 105 (98-107) mEq/L Carbon Dioxide 24 (23-29) mEq/L BUN 16 (6-20) mg/dL Creatinine 0.70 (0.60-1.20) mg/dL Est GFR ( Amer) > 60 (> 60) Est GFR (Non-Af Amer) > 60 (> 60) BUN/Creatinine Ratio 23 (6-26) Glucose 93 (70-105) mg/dL Calculated Osmolality 287 (280-300) Lactic Acid (0.5-2.2) mmol/L Calcium 9.8 (8.6-10.3) mg/dL Total Bilirubin 0.3 (0.3-1.0) mg/dL Direct Bilirubin 0.1 (0.0-0.2) mg/dL Indirect Bilirubin 0.2 (0.0-1.2) mg/dL AST 19 (13-39) Units/L ALT 17 (7-52) Units/L Alkaline Phosphatase 52 (34-104) Units/L Serum Total Protein 7.5 (6.4-8.9) g/dL Albumin 4.8 (3.5-5.7) g/dL Globulin 2.7 (2.4-3.5) g/dL Albumin/Globulin Ratio 1.8 (1.1-2.2) Lipase 19 (11-82) Units/L Urine Color (Yellow) Urine Clarity (Clear) Urine pH (5.0-8.0) pH Units Ur Specific Vernon (1.010-1.025) Urine Protein (Neg-Trace) mg/dL Urine Glucose (UA) (Normal) mg/dL Urine Ketones (Negative) mg/dL Urine Blood (Negative) Urine Nitrite (Negative) Urine Bilirubin (Negative) Urine Urobilinogen (Normal) mg/dL Ur Leukocyte Esterase (Negative) Urine Microscopic RBC (0-3) per hpf Urine Microscopic WBC (0-3) per hpf Ur Squamous Epith Cells (None-Few) per lpf Urine Bacteria (None-Few) per hpf Hyaline Casts (None-Few) per lpf Urine Mucus (Few) Ur Culture Indicated? (NO) Urine Test (Negative) Kacy species DNA Not Detected (Not Detect) Chlam trachomat DNA PCR NOT DETECTED (Not Detect) Gardnerella DNA Probe Not Detected (Not Detect) N.gonorrhoeae DNA (PCR) NOT DETECTED (Not Detect) Trichomonas DNA Probe Not Detected (Not Detect) 01/04/18 Range/Units 07:09 WBC (4.3-11.1) K/mcL RBC (3.82-4.97) M/mcL Hgb (11.5-15.4) g/dL Hct (35.3-44.9) % MCV (83.0-100.0) fL MCH (28.0-33.3) pg MCHC (31.6-35.5) g/dL RDW (11.5-14.5) % Plt Count (140-400) K/mcL MPV (9.4-12.4) fL Immature Gran % (0-4) % Seg Neutrophils % % Lymphocytes % % Monocytes % % Eosinophils % % Basophils % % Neutrophils # (1.6-8.9) K/mcL Lymphocytes # (0.6-4.6) K/mcL Monocytes # (0.0-1.3) K/mcL Eosinophils # (0.0-0.6) K/mcL Basophils # (0.0-0.2) K/mcL Sodium (136-145) mEq/L Potassium (3.5-5.1) mEq/L Chloride (98-107) mEq/L Carbon Dioxide (23-29) mEq/L BUN (6-20) mg/dL Creatinine (0.60-1.20) mg/dL Est GFR ( Amer) (> 60) Est GFR (Non-Af Amer) (> 60) BUN/Creatinine Ratio (6-26) Glucose (70-105) mg/dL Calculated Osmolality (280-300) Lactic Acid 1.4 (0.5-2.2) mmol/L Calcium (8.6-10.3) mg/dL Total Bilirubin (0.3-1.0) mg/dL Direct Bilirubin (0.0-0.2) mg/dL Indirect Bilirubin (0.0-1.2) mg/dL AST (13-39) Units/L ALT (7-52) Units/L Alkaline Phosphatase (34-104) Units/L Serum Total Protein (6.4-8.9) g/dL Albumin (3.5-5.7) g/dL Globulin (2.4-3.5) g/dL Albumin/Globulin Ratio (1.1-2.2) Lipase (11-82) Units/L Urine Color (Yellow) Urine Clarity (Clear) Urine pH (5.0-8.0) pH Units Ur Specific Vernon (1.010-1.025) Urine Protein (Neg-Trace) mg/dL Urine Glucose (UA) (Normal) mg/dL Urine Ketones (Negative) mg/dL Urine Blood (Negative) Urine Nitrite (Negative) Urine Bilirubin (Negative) Urine Urobilinogen (Normal) mg/dL Ur Leukocyte Esterase (Negative) Urine Microscopic RBC (0-3) per hpf Urine Microscopic WBC (0-3) per hpf Ur Squamous Epith Cells (None-Few) per lpf Urine Bacteria (None-Few) per hpf Hyaline Casts (None-Few) per lpf Urine Mucus (Few) Ur Culture Indicated? (NO) Urine Test (Negative) Kacy species DNA (Not Detect) Chlam trachomat DNA PCR (Not Detect) Gardnerella DNA Probe (Not Detect) N.gonorrhoeae DNA (PCR) (Not Detect) Trichomonas DNA Probe (Not Detect) Result diagrams: 01/04/18 05:44 01/04/18 05:44 Lab Results 01/04/18 01/04/18 01/04/18 Range/Units 05:03 05:03 05:44 WBC 19.7 H (4.3-11.1) K/mcL RBC 5.32 H (3.82-4.97) M/mcL Hgb 14.7 (11.5-15.4) g/dL Hct 45.6 H (35.3-44.9) % MCV 85.7 (83.0-100.0) fL MCH 27.6 L (28.0-33.3) pg MCHC 32.2 (31.6-35.5) g/dL RDW 13.3 (11.5-14.5) % Plt Count 280 (140-400) K/mcL MPV 9.9 (9.4-12.4) fL Immature Gran % 0.6 (0-4) % Seg Neutrophils % 85.2 % Lymphocytes % 10.1 % Monocytes % 3.5 % Eosinophils % 0.4 % Basophils % 0.2 % Neutrophils # 16.8 H (1.6-8.9) K/mcL Lymphocytes # 2.0 (0.6-4.6) K/mcL Monocytes # 0.7 (0.0-1.3) K/mcL Eosinophils # 0.1 (0.0-0.6) K/mcL Basophils # 0.0 (0.0-0.2) K/mcL Sodium (136-145) mEq/L Potassium (3.5-5.1) mEq/L Chloride (98-107) mEq/L Carbon Dioxide (23-29) mEq/L BUN (6-20) mg/dL Creatinine (0.60-1.20) mg/dL Est GFR ( Amer) (> 60) Est GFR (Non-Af Amer) (> 60) BUN/Creatinine Ratio (6-26) Glucose (70-105) mg/dL Calculated Osmolality (280-300) Lactic Acid (0.5-2.2) mmol/L Calcium (8.6-10.3) mg/dL Total Bilirubin (0.3-1.0) mg/dL Direct Bilirubin (0.0-0.2) mg/dL Indirect Bilirubin (0.0-1.2) mg/dL AST (13-39) Units/L ALT (7-52) Units/L Alkaline Phosphatase (34-104) Units/L Serum Total Protein (6.4-8.9) g/dL Albumin (3.5-5.7) g/dL Globulin (2.4-3.5) g/dL Albumin/Globulin Ratio (1.1-2.2) Lipase (11-82) Units/L Urine Color Yellow (Yellow) Urine Clarity Cloudy A (Clear) Urine pH 6.0 (5.0-8.0) pH Units Ur Specific [place] 1.027 H (1.010-1.025) Urine Protein Trace (Neg-Trace) mg/dL Urine Glucose (UA) Normal (Normal) mg/dL Urine Ketones Negative (Negative) mg/dL Urine Blood Large H (Negative) Urine Nitrite Negative (Negative) Urine Bilirubin Negative (Negative) Urine Urobilinogen Normal (Normal) mg/dL Ur Leukocyte Esterase Negative (Negative) Urine Microscopic RBC 0-3 (0-3) per hpf Urine Microscopic WBC 5-15 H (0-3) per hpf Ur Squamous Epith Cells Many H (None-Few) per lpf Urine Bacteria Many H (None-Few) per hpf Hyaline Casts Few (None-Few) per lpf Urine Mucus Many H (Few) Ur Culture Indicated? NO (NO) Urine Test Negative (Negative) Kacy species DNA (Not Detect) Chlam trachomat DNA PCR (Not Detect) Gardnerella DNA Probe (Not Detect) N.gonorrhoeae DNA (PCR) (Not Detect) Trichomonas DNA Probe (Not Detect) 01/04/18 01/04/18 01/04/18 Range/Units 05:44 07:00 07:00 WBC (4.3-11.1) K/mcL RBC (3.82-4.97) M/mcL Hgb (11.5-15.4) g/dL Hct (35.3-44.9) % MCV (83.0-100.0) fL MCH (28.0-33.3) pg MCHC (31.6-35.5) g/dL RDW (11.5-14.5) % Plt Count (140-400) K/mcL MPV (9.4-12.4) fL Immature Gran % (0-4) % Seg Neutrophils % % Lymphocytes % % Monocytes % % Eosinophils % % Basophils % % Neutrophils # (1.6-8.9) K/mcL Lymphocytes # (0.6-4.6) K/mcL Monocytes # (0.0-1.3) K/mcL Eosinophils # (0.0-0.6) K/mcL Basophils # (0.0-0.2) K/mcL Sodium 138 (136-145) mEq/L Potassium 3.3 L (3.5-5.1) mEq/L Chloride 105 (98-107) mEq/L Carbon Dioxide 24 (23-29) mEq/L BUN 16 (6-20) mg/dL Creatinine 0.70 (0.60-1.20) mg/dL Est GFR ( Amer) > 60 (> 60) Est GFR (Non-Af Amer) > 60 (> 60) BUN/Creatinine Ratio 23 (6-26) Glucose 93 (70-105) mg/dL Calculated Osmolality 287 (280-300) Lactic Acid (0.5-2.2) mmol/L Calcium 9.8 (8.6-10.3) mg/dL Total Bilirubin 0.3 (0.3-1.0) mg/dL Direct Bilirubin 0.1 (0.0-0.2) mg/dL Indirect Bilirubin 0.2 (0.0-1.2) mg/dL AST 19 (13-39) Units/L ALT 17 (7-52) Units/L Alkaline Phosphatase 52 (34-104) Units/L Serum Total Protein 7.5 (6.4-8.9) g/dL Albumin 4.8 (3.5-5.7) g/dL Globulin 2.7 (2.4-3.5) g/dL Albumin/Globulin Ratio 1.8 (1.1-2.2) Lipase 19 (11-82) Units/L Urine Color (Yellow) Urine Clarity (Clear) Urine pH (5.0-8.0) pH Units Ur Specific [place] (1.010-1.025) Urine Protein (Neg-Trace) mg/dL Urine Glucose (UA) (Normal) mg/dL Urine Ketones (Negative) mg/dL Urine Blood (Negative) Urine Nitrite (Negative) Urine Bilirubin (Negative) Urine Urobilinogen (Normal) mg/dL Ur Leukocyte Esterase (Negative) Urine Microscopic RBC (0-3) per hpf Urine Microscopic WBC (0-3) per hpf Ur Squamous Epith Cells (None-Few) per lpf Urine Bacteria (None-Few) per hpf Hyaline Casts (None-Few) per lpf Urine Mucus (Few) Ur Culture Indicated? (NO) Urine Test (Negative) Kacy species DNA Not Detected (Not Detect) Chlam trachomat DNA PCR NOT DETECTED (Not Detect) Gardnerella DNA Probe Not Detected (Not Detect) N.gonorrhoeae DNA (PCR) NOT DETECTED (Not Detect) Trichomonas DNA Probe Not Detected (Not Detect) 01/04/18 Range/Units 07:09 WBC (4.3-11.1) K/mcL RBC (3.82-4.97) M/mcL Hgb (11.5-15.4) g/dL Hct (35.3-44.9) % MCV (83.0-100.0) fL MCH (28.0-33.3) pg MCHC (31.6-35.5) g/dL RDW (11.5-14.5) % Plt Count (140-400) K/mcL MPV (9.4-12.4) fL Immature Gran % (0-4) % Seg Neutrophils % % Lymphocytes % % Monocytes % % Eosinophils % % Basophils % % Neutrophils # (1.6-8.9) K/mcL Lymphocytes # (0.6-4.6) K/mcL Monocytes # (0.0-1.3) K/mcL Eosinophils # (0.0-0.6) K/mcL Basophils # (0.0-0.2) K/mcL Sodium (136-145) mEq/L Potassium (3.5-5.1) mEq/L Chloride (98-107) mEq/L Carbon Dioxide (23-29) mEq/L BUN (6-20) mg/dL Creatinine (0.60-1.20) mg/dL Est GFR ( Amer) (> 60) Est GFR (Non-Af Amer) (> 60) BUN/Creatinine Ratio (6-26) Glucose (70-105) mg/dL Calculated Osmolality (280-300) Lactic Acid 1.4 (0.5-2.2) mmol/L Calcium (8.6-10.3) mg/dL Total Bilirubin (0.3-1.0) mg/dL Direct Bilirubin (0.0-0.2) mg/dL Indirect Bilirubin (0.0-1.2) mg/dL AST (13-39) Units/L ALT (7-52) Units/L Alkaline Phosphatase (34-104) Units/L Serum Total Protein (6.4-8.9) g/dL Albumin (3.5-5.7) g/dL Globulin (2.4-3.5) g/dL Albumin/Globulin Ratio (1.1-2.2) Lipase (11-82) Units/L Urine Color (Yellow) Urine Clarity (Clear) Urine pH (5.0-8.0) pH Units Ur Specific [place] (1.010-1.025) Urine Protein (Neg-Trace) mg/dL Urine Glucose (UA) (Normal) mg/dL Urine Ketones (Negative) mg/dL Urine Blood (Negative) Urine Nitrite (Negative) Urine Bilirubin (Negative) Urine Urobilinogen (Normal) mg/dL Ur Leukocyte Esterase (Negative) Urine Microscopic RBC (0-3) per hpf Urine Microscopic WBC (0-3) per hpf Ur Squamous Epith Cells (None-Few) per lpf Urine Bacteria (None-Few) per hpf Hyaline Casts (None-Few) per lpf Urine Mucus (Few) Ur Culture Indicated? (NO) Urine Test (Negative) Kacy species DNA (Not Detect) Chlam trachomat DNA PCR (Not Detect) Gardnerella DNA Probe (Not Detect) N.gonorrhoeae DNA (PCR) (Not Detect) Trichomonas DNA Probe (Not Detect) - Radiology Data Radiology results reviewed: Yes I reviewed the patient's radiology results. Pelvis Ultrasound 01/04/18 08:01 IMPRESSION: Unremarkable pelvic sonography. D/ / Leodan Chow MD / Leodan Chow MD Interpreting Provider: Leodan Chow MD Abdomen/Pelvis CT 01/04/18 08:39 IMPRESSION: 1. Distended gallbladder, with minimal intrahepatic bile duct prominence. Recommend correlation with bilirubin levels 2. Fluid filled small bowel and colon is suggestive of diarrhea 3. Otherwise, no acute abnormality identified within the abdomen or pelvis. The appendix is normal. 4. The uterus has a heterogeneous appearance, nonspecific. D/ / Duy Goodson MD / Duy Goodson MD Interpreting Provider: Duy Goodson MD Attestation Statement - Attestation Attestation: For this encounter, I have reviewed the UNDERCOVER COP or PA documentation, treatment plan, and medical decision making; and I have had face to face time with this patient. Patient is a 22-year-old white female who presents to the emergency department today for complaints of superpubic abdominal pain with intractable nausea and vomiting status post hysteroscopy on of last week by PROBATION COUNSELOR. Patient states she is just not been feeling well since the procedure and reports subjective fevers and chills associated with these symptoms. Patient was seen initially by the mid-level provider and I was consult to see the patient following OB consult and change in vital signs. I agree with patient's physical exam findings as documented, for me on exam patient has diffuse tenderness to palpation but most prominently in the suprapubic area with no peritoneal signs. Patient appears clinically dehydrated and states that she finally did get some relief with Phenergan here in the ED. Patient was tachycardic and hypotensive on my assessment with IV fluids running and antibiotics initiated. Patient had been seen in the ED by OB /TRANSPORTATION DISPATCH MANAGER doctor Genevieve, who recommended oral antibiotics and discharged home. Patient's workup shows a leukocytosis with left shift, and abdomen and pelvis CT just showed a distended gallbladder with normal LFTs and lipase. Ultrasound of the pelvis showed no acute abnormalities. Concerned with recent procedure the patient may have endometritis as well as possible partially treated UTI she did not complete Macrobid that she was prescribed recently. Despite patient getting improvement in her nausea and vomiting here with Phenergan concerned with change in patient's vital signs. IV fluids been initiated and recommend admission with continued antibiotics and consultation by OB. Patient was hospitalized to the hospitalist service and have continued supportive care.
[2018-01-04 08:01] LABS: Candida DNA Not Detected (Not Detect); Gardnerella DNA Not Detected (Not Detect); Trichomonas DNA Not Detected (Not Detect)
[2018-01-04] MEDS ORDERED: cefTRIAXone 250 MG VIAL IM ONE (08:10)
[2018-01-04] MEDS ORDERED: Promethazine 25 MG in 0.9 % Sodium Chloride 50 ML IVPB ONE (08:16)
[2018-01-04] MEDS ORDERED: Doxycycline 100 MG CAPSULE PO ONE (10:16)
[2018-01-04] MEDS ORDERED: metroNIDAZOLE 500 MG TABLET PO ONE (10:16)
[2018-01-04] MEDS ORDERED: Piperacillin/Tazobactam 3.375 GM in 0.9 % Sodium Chloride Mini Bag 100 ML IVPB ONE (11:36)
--- NOTE | 2018-01-04 11:37 | OB/GYN Consult Note ---
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 Her surgery was uncomplicated on 01/01. Her pain is mostly abdominal, the vaginal cultures have returned negative, the diagnostic imaging suggests a gastrointestinal issue going on as the gall bladder is distended and there is fluid in the small/ large bowel suggesting diarrhea. I have asked the ED to admit her to Medicine as the primary and start Zosyn for broad coverage. I will round on her in the AM and I am available if needed. Qualifiers: Abdominal location: generalized Qualified Code(s): R10.84 - Generalized abdominal pain History of Present Illness Reason for consult: other Chief complaint: Abd pain History of present illness: Qian is a 22 y/o who is a patient of mine with a history of pelvic pain found to have something that looked like a polyp in the uterus seen on U/S. She is s/p diagnostic hysteroscopy with possible poylp removal. Surgery was uncomplicated. She says that she woke up this AM at 4AM with abdominal pain, nausea and vomiting, she denies vaginal bleeding or discharge, denies any urinary complaints. The ED called me for recommendations since I'm her Division Supervisor. I went and saw her in the ED and she looked clinically stable. My physical exam was benign. I had told the ED to treat her as possible endometritis while we wait for the U/S and cultures. Her vitals have been stable and she has not had any fevers. When the U/S report returned, it was unremarkable, I also asked for a CT scan and it confirmed the findings in that the uterus and pelvis were unremarkable. It did show a dilated gallbladder and possible diarrhea evidenced by fluid in the small and large intestine. I spoke to the ED and counseled them that this is not school clerk related and Medicine will need to be consulted. Past Med Surg Social Fam HX - Past Medical History Medical history: other Psychiatric history: anxiety, bipolar, depression - Past Surgical History Surgical History: no surgical history - Social History Smoking Status: Never smoker Smokeless Tobacco Status: No Alcohol use: none Drug use: none Medications and Allergies Ibuprofen [Motrin] 600 mg PO Q6HR PRN #60 tab 01/02/18 [Rx] Nitrofurantoin Monohyd/M-Cryst [Macrobid 100 mg Capsule] 100 mg PO BID 01/02/18 [History] 3 Allergy/AdvReac Type Severity Reaction Status Date / Time diphenhydramine AdvReac NAUSEA/VOMI Verified 01/04/18 04:58 [From Benadryl] TING Exam - Vital Signs Vital signs: Initial Vital Signs Temp Pulse Resp BP Pulse Ox 98.1 F 92 16 117/84 99 01/04/18 04:55 01/04/18 04:55 01/04/18 04:55 01/04/18 04:55 01/04/18 04:55 - Constitutional Constitutional: well developed - HEENT HEENT: PERRL - Lungs Respiratory exam: CTAB - Cardiovascular Cardiovascular exam: RRR - Abdomen Abdomen: Present: non tender Results Result Diagrams: 01/04/18 05:44 01/04/18 05:44 Abnormal lab results WBC 19.7 K/mcL (4.3-11.1) H 01/04/18 05:44 RBC 5.32 M/mcL (3.82-4.97) H 01/04/18 05:44 Hct 45.6 % (35.3-44.9) H 01/04/18 05:44 MCH 27.6 pg (28.0-33.3) L 01/04/18 05:44 Neutrophils # 16.8 K/mcL (1.6-8.9) H 01/04/18 05:44 Potassium 3.3 mEq/L (3.5-5.1) L 01/04/18 05:44 Urine Clarity Cloudy (Clear) A 01/04/18 05:03 Ur Specific [place] 1.027 (1.010-1.025) H 01/04/18 05:03 Urine Blood Large (Negative) H 01/04/18 05:03 Urine Microscopic WBC 5-15 per hpf (0-3) H 01/04/18 05:03 Ur Squamous Epith Cells Many per lpf (None-Few) H 01/04/18 05:03 Urine Bacteria Many per hpf (None-Few) H 01/04/18 05:03 Urine Mucus Many (Few) H 01/04/18 05:03 All other labs normal. Consult Discharge Plan - Plan Referrals: Leonor Vallejo MD [Partnered Physician] -
[2018-01-04] MEDS ORDERED: Ondansetron 4 MG/2 ML VIAL IVP PRN (13:46)
[2018-01-04] MEDS ORDERED: Naloxone 0.4 MG/ML INJ IVP PRN (13:48)
[2018-01-04] MEDS ORDERED: Acetaminophen 325 MG TABLET PO PRN (13:48)
[2018-01-04] MEDS ORDERED: *HR* HYDROcodone/Acet 5/325 mg TABLET PO PRN (13:48)
[2018-01-04] MEDS ORDERED: *HR* OxyCODONE Immed Rel 5 MG TABLET PO PRN (13:48)
--- NOTE | 2018-01-04 13:59 | Internal Med History&Physical ---
Date of Encounter: 01/04/18 Time of Encounter: 13:00 Assessment and Plan (1) Sepsis Current visit: Yes Status: Acute Acute sepsis criteria w/HR >100 and WBC of 19.7. Pt. reports fever at home but temp in ED 98.1F. 2 boluses 0.9 NS in ED. Will continue w/100 mL/HR. Blood cultures x2 ordered. Lactic acid 1.4. Will repeat. Pt. started on Doxycycline, Ceftriaxone, and Flagyl in ED per money position officer Dr. Vallejo w/continuation of Macrobid. Zosyn also administered. Will continue w/Zosyn at 3.375 gm Q8HR daily for infection coverage and adjust abx coverage based on culture results. Tylenol 650 mg Q6HR PRN for fever. Continuous cardiac telemetry d/t tachycardia. Supplemental O2 w/titration and SpO2 monitoring PRN. Monitor pt. and f/u labs closely for signs of increasing infection or severe sepsis/septic shock. Pt. discussed w/Dr. Butt who agrees w/plan of care. Pt. is high risk for further morbidity d/t current sepsis criteria, abdominal pain and imaging suggestive of cholecystitis, status post-hysteroscopy w/potential for infection, and risk factors. Inpatient. Qualifiers: Sepsis type: sepsis due to unspecified organism Qualified Code(s): A41.9 - Sepsis, unspecified organism (2) Cholecystitis without calculus Current visit: Yes Status: Acute Acute cholecystitis w/o recognized calculus but bile accumulation. CT of the abdomen/pelvis today shows distended gallbladder w/minimal intrahepatic bile duct prominence. Recommended correlation w/bilirubin levels. Fluid-filled small bowel and colon suggestive of diarrhea. No other acute abnormality identified w/ i abdomen or pelvis. Bilirubin ordered. CRP ordered. RUQ US ordered. NPO status for now. IVPB Zosyn 3.375 gm Q8HR. IV fluids @ 100 mL/HR. Stair-step pain medication for pain mgmt. Monitor pt. and f/u labs. (3) Abdominal pain Current visit: Yes Status: Acute Acute abdominal pain for the past two days. Pt. reports pain started after endometrial polyp removal. Reports fever and generalized abdominal pain with nausea and vomiting. NPO status for now d/t N/V and will advance as tolerated when appropriate. Zofran and Phenergan ordered IVP. Stair-step pain medications for pain mgmt. RUQ US to r/o gallstones. Monitor I&O. Qualifiers: Abdominal location: generalized Qualified Code(s): R10.84 - Generalized abdominal pain (4) Status post hysteroscopy Current visit: Yes Status: Acute Status post-hysteroscopy 2 days ago. Pt. reports having endometrial polyp removal x1 by Dr. Vallejo. Pt. also reports dark scant blood from vagina. Dr. Vallejo performed bimanual pelvic exam in ED to r/o endometritis/PID. Recommendation by Dr. Vallejo for transvaginal US. He will follow pt. (5) Hypokalemia Current visit: Yes Status: Acute Acute hypokalemia w/potassium of 3.3 on admission. 20 mEq potassium PO ordered. Monitor potassium level in f/u labs. Continuous telemetry d/t tachycardia and sepsis criteria. (6) DVT prophylaxis Current visit: Yes Status: Acute Lovenox 40 mg SQ 0600 for DVT prophylaxis. Monitor pt. for signs of bleeding. Internal Medicine - H&P: HPI Chief complaint: Abdominal pain/N/V Admitted From: Emergency Dept Plans for Post Hospital Care: Home History of present illness: Ms. Camejo is a 22 year old female with no previous medical hx presents from the ED w/chief complaint of abdominal pain, nausea, chills, and vomiting for the past two days. Pt. also reports fever at home. States she is 2 days post- hysteroscopy w.removal of endomertrial polyp x1. Describes her abdominal pain as generalized and non-radiating. Denies previous occurrence. Also reports being treated for kidney infection and currently taking Macrobid PO. Reports dark scant vaginal bleeding. Pt. denies sexual intercourse w/i the past 7 days, bone/joint pain, SOB, dyspnea, weakness, headache, cough, changes in vision, chest pain, palpitations, diarrhea, constipation, dizziness, lightheadedness, pre-syncope, syncope. Past Med Surg Social Fam HX - Past Medical History Source: patient, old records reviewed Medical history: other Psychiatric history: anxiety, bipolar, depression - Past Surgical History Surgical History: no surgical history - Social History Smoking Status: Never smoker Smokeless Tobacco Status: No Alcohol use: none Drug use: none Current living situation: Home, With Family Activity Level: Independent ambulation Recent Out of Country Travel Within the Last 8 Weeks: No Exposure or Possible Exposure to Illness During Travel: No - Family History Father Race: Family Member Ethnicity: Non- Living Status: Still Living Hx Family Medical Disorders: No Mother Race: Family Member Ethnicity: Non- Living Status: Still Living Hx Family Medical Disorders: No Internal Medicine - H&P: Meds Ibuprofen [Motrin] 600 mg PO Q6HR PRN #60 tab 01/02/18 [Rx] Nitrofurantoin Monohyd/M-Cryst [Macrobid 100 mg Capsule] 100 mg PO BID 01/02/18 [History] 3 Allergy/AdvReac Type Severity Reaction Status Date / Time diphenhydramine AdvReac NAUSEA/VOMI Verified 01/04/18 12:04 [From Benadryl] TING All Systems PM: A 10-system review of systems was performed and is negative for pertinent findings except as documented above in the HPI. - Constitutional Constitutional: as per HPI, chills, fever(s), no night sweats - EENT Eyes: no change in vision, no discharge, no pain, no photophobia Ears: no ear discharge, no ear pain, no tinnitus Nose, mouth and throat: no dysphagia, no nasal discharge, no neck pain, no sore throat - Breasts Breasts: as per HPI - Cardiovascular Cardiovascular ROS IM: no chest pain, no diaphoresis, no dyspnea, no lightheadedness, no palpitations, no syncope - Respiratory Respiratory: no cough, no dyspnea, no wheezing, no excessive phlegm production - Gastrointestinal Gastrointestinal: as per HPI, abdominal pain (Generalized and non-radiating), nausea, vomiting, no diarrhea, no hematemesis, no hematochezia, no melena - Genitourinary Genitourinary: vaginal discharge (Scant dark red blood. Pt. is 2 days post- hysteroscopy for removal of endometrial polyp.), no change in urinary stream, no dysuria, no flank pain, no hematuria Menstruation: as per HPI - Musculoskeletal Musculoskeletal ROS IM: no numbness, no tingling - Integumentary Integumentary IM: no rash, no unusual bruising - Neurological Neurological ROS: no confusion, no convulsions, no focal weakness, no numbness, no tingling, no tremor(s) - Psychiatric Psychiatric: as per HPI, anxiety, depression - Endocrine Endocrine IM: as per HPI - Hematologic/Lymphatic Hematologic/Lymphatic: no easy bruising - Allergic/Immunologic Allergic/Immunologic: as per HPI - Constitutional Vitals: Temp Pulse Resp BP Pulse Ox 98.1 F 104 14 106/76 98 01/04/18 04:55 01/04/18 12:10 01/04/18 12:10 01/04/18 12:10 01/04/18 12:10 General appearance: Present: cooperative, mild distress (Abdominal pain w/ nausea and vomiting), A&O X 3, pleasant, answers questions appropriately - Head Head exam: Present: atraumatic, normocephalic - Eye Eye exam: Present: PERRL, conjuntiva pink, sclera anicteric Pupils: Present: PERRL - ENT ENT exam: Present: normal exam - Neck Neck exam general surgery: Present: normal inspection, supple, trachea midline. Absent: lymphadenopathy - Respiratory Respiratory exam: Present: CTAB. Absent: accessory muscle use, rales, rhonchi, wheezes - Cardiovascular Cardiovascular exam: Present: +S1, +S2, tachycardia. Absent: diastolic murmur, gallop, rubs, systolic murmur - GI/Abdominal GI/Abdominal exam: Present: normal bowel sounds, soft, tenderness, no peritoneal signs. Absent: distended - Rectal Rectal exam: Present: deferred - Additional comments: exam deferred. Manual exam performed by money position officer. - Extremities Exam Extremities exam: Present: warm, radial pulses palpable and symmetrical. Absent : calf tenderness, cyanotic, pedal edema - Back Exam Back exam: Present: normal inspection - Neurological Exam Neurological exam: Present: CN II-XII intact, oriented X3, no focal deficits. Absent: pronater drift, facial droop, speech deficit - Psychiatric Psychiatric exam: Present: normal affect, normal mood - Skin Skin exam: Present: dry, intact Internal Med - H&P Results - Labs CBC & Chem 7: 01/04/18 05:44 01/04/18 05:44 - Diagnostic Studies Chest x-ray Additional comments: Impressions Chest X-Ray 01/04/18 11:40 IMPRESSION: No acute cardiopulmonary process. D/ / 01/04/2018 12:47:22 Duy Goodson MD / antonia Interpreting Provider: Duy Goodson MD CT scan - abdomen Additional comments: Impressions Abdomen/Pelvis CT 01/04/18 08:39 IMPRESSION: 1. Distended gallbladder, with minimal intrahepatic bile duct prominence. Recommend correlation with bilirubin levels. 2. Fluid filled small bowel and colon is suggestive of diarrhea. 3. Otherwise, no acute abnormality identified within the abdomen or pelvis. The appendix is normal. 4. The uterus has a heterogeneous appearance, nonspecific. D/ / 01/04/2018 10:28:25 Duy Goodson MD / Radha Martínez Interpreting Provider: Duy Goodson MD Other Images Additional comments: Impressions Pelvis Ultrasound 01/04/18 08:01 IMPRESSION: Unremarkable pelvic sonography. D/ / 01/04/2018 10:25:29 Leodan Chow MD / Radha Martínez Interpreting Provider: Leodan Chow MD nterpreting Provider: Duy Goodson MD
[2018-01-04] MEDS ORDERED: 0.9 % Sodium Chloride 1,000 ML IVC SCH ×2 (14:00→20:33)
[2018-01-04] MEDS: Piperacillin/Tazobactam 3.375 GM in 0.9 % Sodium Chloride Mini Bag 100 ML IVPB SCH (21:15)
[2018-01-05] MEDS ORDERED: *HR* Enoxaparin 40 MG/0.4 ML SYRINGE SQ SCH (06:00)
[2018-01-05] MEDS: Piperacillin/Tazobactam 3.375 GM in 0.9 % Sodium Chloride Mini Bag 100 ML IVPB SCH ×2 (06:33→11:54)
[2018-01-05 07:38] VITALS: BP 105/69
[2018-01-05 07:43] LABS: Alanine Aminotransferase 8 Units/L (7-52); Albumin 3.1 g/dL (3.5-5.7); Albumin/Globulin Ratio 1.7 (1.1-2.2); Alkaline Phosphatase 39 Units/L (34-104); Aspartate Amino Transferase 10 Units/L (13-39); BUN/Creatinine Ratio 13 (6-26); Bilirubin,Total 0.4 mg/dL (0.3-1.0); Blood Urea Nitrogen 7 mg/dL (6-20); Carbon Dioxide 23 mEq/L (23-29); Chloride 111 mEq/L (98-107); Cholesterol 108 mg/dL (< 200); Globulin 1.8 g/dL (2.4-3.5); Glucose 91 mg/dL (70-105); HDL Cholesterol 36 mg/dL (40-59); LDL Cholesterol,Calculated 62 mg/dL (0-99); Magnesium 1.8 mg/dL (1.6-2.6); Osmolality,Calculated 280 (280-300); Potassium 3.6 mEq/L (3.5-5.1); Sodium 136 mEq/L (136-145); Total Protein 4.9 g/dL (6.4-8.9); Triglycerides 48 mg/dL (< 150); eGFR For African Americans > 60 (> 60); eGFR For Non-African Americans > 60 (> 60)
[2018-01-05 09:10] LABS: Basophils % 0.1 %; Eosinophils # 0.2 K/mcL (0.0-0.6); Eosinophils % 2.6 %; Immature Granulocytes % 0.4 % (0-4); Lymphocytes # 1.9 K/mcL (0.6-4.6); Lymphocytes % 27.6 %; Mean Corpuscular HGB Conc 31.8 g/dL (31.6-35.5); Mean Corpuscular Hemoglobin 27.8 pg (28.0-33.3); Mean Corpuscular Volume 87.6 fL (83.0-100.0); Mean Platelet Volume 9.9 fL (9.4-12.4); Monocytes # 0.7 K/mcL (0.0-1.3); Monocytes % 9.7 %; Neutrophils # 4.2 K/mcL (1.6-8.9); Platelet Count 201 K/mcL (140-400); Red Blood Count 3.88 M/mcL (3.82-4.97); Red Cell Distribution Width 13.5 % (11.5-14.5); Segmented Neutrophils % 59.6 %
[2018-01-05 09:13] LABS: Hemoglobin 10.8 g/dL (11.5-15.4)
--- NOTE | 2018-01-05 10:38 | OB/GYN Progress Note ---
Date of Encounter: 01/05/18 Time of Encounter: 07:00 - Assessment and Plan (1) Abdominal pain Current Visit: Yes Status: Acute I appreciate Medicine's management of the patient, Blood cultures have been sent and pending, my recommendations will be to allow for regular diet, continue current antibiotics until at least tomorrow AM, I will round on her tomorrow and discuss with the Medical team my plans for discharge, Otherwise cont current inpt care per Medicine and I'm always available if I am needed Qualifiers: Abdominal location: generalized Qualified Code(s): R10.84 - Generalized abdominal pain Subjective - Subjective Interval history: I saw the patient this AM and she is doing very well, she no longer has nausea or abd pain. At the time I walked in, she said she was just waking up from sleep. I touched her and she said she feels warm because of the amount of blankets on her otherwise no fevers documented by vitals. She says that she is hungry. Objective - Vital Signs Latest vital signs: Vital Signs Temp Pulse Resp BP Pulse Ox 01/05/18 07:37 98.4 F 81 14 105/69 98 01/05/18 02:55 98.3 F 90 14 98/60 99 01/04/18 23:44 98.3 F 85 14 96/58 98 01/04/18 18:42 99.0 F 109 14 99/59 98 01/04/18 15:42 98 01/04/18 15:40 99.1 F 101 16 105/71 97 01/04/18 15:00 14 110/72 01/04/18 12:10 104 14 106/76 98 Intake and Output 01/04/18 01/05/18 01/05/18 23:59 07:59 15:59 Intake Total 240 / 240 340 / 340 0 / 0 Output Total 200 / 200 Balance 40 / 40 340 / 340 0 / 0 Intake: IV Fluids 100 / 100 Zosyn 3.375 GM In 0.9 % Sodium 100 / 100 Chloride (Mini-Bag +) 100 ML @ 25 mls/hr IVPB Q8H ON LICENSE OF [facility] Rx#: [id number] Oral 240 / 240 240 / 240 0 / 0 Output: Urine 200 / 200 Other: # Voids 1 1 # Bowel Movements 0 Weight 56.744 kg Patient Weight 01/05/18 23:59 Weight 56.744 kg - I&O's I&O's: Intake & Output 01/02/18 01/03/18 01/04/18 01/05/18 23:59 23:59 23:59 23:59 Intake Total 240 / 240 340 / 340 Output Total 200 / 200 Balance 40 / 40 340 / 340 Weight 56.744 kg - Exam Lungs: bilateral: normal Chest: Normal S1, Normal S2 Extremities: Present: normal Abdomen: Present: normal appearance, soft - Labs Labs: Abnormal lab results Hgb 10.8 g/dL (11.5-15.4) L D 01/05/18 08:36 Hct 34.0 % (35.3-44.9) L 01/05/18 08:36 MCH 27.8 pg (28.0-33.3) L 01/05/18 08:36 Chloride 111 mEq/L (98-107) H 01/05/18 07:07 Creatinine 0.56 mg/dL (0.60-1.20) L 01/05/18 07:07 Calcium 8.0 mg/dL (8.6-10.3) L 01/05/18 07:07 AST 10 Units/L (13-39) L 01/05/18 07:07 C-Reactive Protein 33 mg/L (Less than 10) H 01/04/18 15:13 Serum Total Protein 4.9 g/dL (6.4-8.9) L 01/05/18 07:07 Albumin 3.1 g/dL (3.5-5.7) L 01/05/18 07:07 Globulin 1.8 g/dL (2.4-3.5) L 01/05/18 07:07 HDL Cholesterol 36 mg/dL (40-59) L 01/05/18 07:07 Urine Clarity Cloudy (Clear) A 01/04/18 05:03 Ur Specific [place] 1.027 (1.010-1.025) H 01/04/18 05:03 Urine Blood Large (Negative) H 01/04/18 05:03 Urine Microscopic WBC 5-15 per hpf (0-3) H 01/04/18 05:03 Ur Squamous Epith Cells Many per lpf (None-Few) H 01/04/18 05:03 Urine Bacteria Many per hpf (None-Few) H 01/04/18 05:03 Urine Mucus Many (Few) H 01/04/18 05:03 Consult Discharge Plan - Plan Referrals: NONE,PCP [Primary Care Provider] -
[2018-01-05] MEDS ORDERED: Folic Acid 1 MG TABLET PO SCH (13:45)
[2018-01-05] MEDS ORDERED: Cyanocobalamin (B-12) 1,000 MCG TABLET PO SCH (13:45)
[2018-01-05 13:56] LABS: Hematocrit 33.4 % (35.3-44.9); Hemoglobin 10.9 g/dL (11.5-15.4)
--- NOTE | 2018-01-05 14:25 | Discharge Summary ---
- NOTES TO OUTPATIENT PROVIDER Notes to Outpatient Provider: Patient to continue a 2 week course of Flagyl and Cipro and to follow-up with securities sales associate in one week Orders not resulted at time of discharge: Pending orders 01/04/18 15:13 HIV-1 Viral Load Routine HIV-1&2 Antibody & p24 Ag Routine RPR [Treponema Pallidum Ab] Stat 01/05/18 19:30 Hemoglobin and Hematocrit [HEME] Q6H 01/06/18 04:00 Complete Blood Count [HEME] AM 0400 Comprehensive Metabolic Panel AM 0400 01/07/18 04:00 Complete Blood Count [HEME] AM 0400 Comprehensive Metabolic Panel AM 0400 01/08/18 04:00 Complete Blood Count [HEME] AM 0400 Comprehensive Metabolic Panel AM 0400 01/09/18 04:00 Complete Blood Count [HEME] AM 0400 Comprehensive Metabolic Panel AM 0400 Date of Encounter: 01/05/18 Time of Encounter: 11:00 - Discharge Diagnosis (1) Abdominal pain Priority: Primary Status: Acute Qualifiers: Abdominal location: generalized Qualified Code(s): R10.84 - Generalized abdominal pain Hospital course: Patient is a 22-year-old female who presents to the ER on 01/04/18 due to lower abdominal pain. Patient reports of having abdominal pain, nausea, chills, and vomiting for the past two days. Patient status post hysteroscopy with removal of endometrial polyp x1. Patient decided to come to the ER for evaluation and was found to have leukocytosis with CT of the abdomen with concerns for distended gallbladder. Patient was started on IV Zosyn and admitted to medical surgical floor. During patients hospital stay right upper quadrant ultrasound showed gallbladder that was unremarkable without any evidence of pericholecystic fluid or wall thickening or stones and negative sonographic Jovel sign. Patients leukocytosis resolved and she is not asymptomatic denying any abdominal pain. Discussed with BODY WORKER who was consult and patient will be discharged to complete a 2 week course of Flagyl and Cipro and to follow-up with gynecology in one week. - Time Spent with Patient Total time spent providing and/or coordinating discharge services: - Discharge Medications Prescriptions: Doxycycline 100 mg PO BID #28 capsule metroNIDAZOLE [Flagyl] 500 mg PO BID #28 tablet Home Medications: Ibuprofen [Motrin] 600 mg PO Q6HR PRN #60 tab 01/02/18 [Rx] Doxycycline 100 mg PO BID #28 capsule 01/05/18 [Rx] metroNIDAZOLE [Flagyl] 500 mg PO BID #28 tablet 01/05/18 [Rx] Allergies/Adverse Reactions: 3 Allergy/AdvReac Type Severity Reaction Status Date / Time diphenhydramine AdvReac NAUSEA/VOMI Verified 01/04/18 12:04 [From Benadryl] TING Date of admission: 01/04/18 12:02 Primary care physician: PCP NONE - Constitutional Vitals: Temp Pulse Resp BP Pulse Ox 98.4 F 81 14 105/69 98 01/05/18 07:37 01/05/18 07:37 01/05/18 07:37 01/05/18 07:37 01/05/18 07:37 General appearance: Present: cooperative, mild distress (Abdominal pain w/ nausea and vomiting), A&O X 3, pleasant, answers questions appropriately - Respiratory Respiratory exam: Present: CTAB. Absent: accessory muscle use, rales, rhonchi, wheezes - Cardiovascular Cardiovascular exam: Present: RRR, +S1, +S2. Absent: diastolic murmur, gallop, rubs, systolic murmur - GI/Abdominal GI/Abdominal exam: Present: normal bowel sounds, soft, no peritoneal signs. Absent: distended, tenderness - Patient Status Disposition: Home, Self-Care Condition: Fair - Discharge Instructions Instructions: Sepsis (DC) Follow Up With: NONE,PCP [Primary Care Provider] - (Given Find a family doctor number to call on Saturday to find a PCP)
[2018-01-09 13:16] LABS: HIV-1 Viral Load Interp NOT DETECTED (Not Detected)
== END 2018-01-05 15:00 | disposition home or self-care (01) | DRG 392 ==
LOC: EMEROO 04:51 → 3ANU 12:02
PROVIDERS: ADMIT Student in an Organized Health Care Education/Training Program; ATTEND Student in an Organized Health Care Education/Training Program

== ENCOUNTER 2019-07-10 09:15 | Observation (INO) ==
[2019-07-10] MEDS ORDERED: Ondansetron 4 MG/2 ML VIAL IVP PRN (10:27)
[2019-07-10] MEDS: Ringers Solution, Lactated 1,000 ML IVC SCH (11:07)
[2019-07-10] MEDS: Piperacillin/Tazobactam 3.375 GM in 0.9 % Sodium Chloride Mini Bag 100 ML IVPB SCH ×2 (13:42→22:30)
[2019-07-10] MEDS: Aspirin 81 MG TAB.CHEW PO SCH (13:43)
--- NOTE | 2019-07-10 14:00 | OB/GYN History & Physical ---
Date of Encounter: 07/10/19 Time of Encounter: 13:55 Assessment and Plan (1) Abdominal pain Current visit: Yes Status: Acute Treating as pyelonephritis Due to nonresponse of oral keflex, will start zosyn per consult with Dr Leonard Regular diet Monitor fetus q shift IV fluids Repeat CBC in am to monitor WBC count. Was 17.6 at [facility] this AM Anticipate discharge on oral antibiotics tomorrow afternoon. Qualifiers: Abdominal location: upper abdomen, unspecified Qualified Code(s): R10.10 - Upper abdominal pain, unspecified (2) 24 weeks gestation of Current visit: Yes Status: Acute History of Present Illness Chief complaint: Pyelonephritis HPI: Ms. Camejo is a 24 year old at 24 weeks and 5 days that presents to [facility] with c/o dizziness, ringing in the ears, right flank pain, and chest pain. She was found to likely have pyelonephritis and transferred to [facility] this am. She states positive movement. She states mild headaches, but has not eaten today and thinks it is from being hungry. She denies visual disturbances, epigastric pain, and leaking of fluid/contractions. She is seen by Dr Vallejo for her care. Her history is significant for multiple UTIs in this all treated with keflex; her urine cultured GBS in May of 2019. She states she began keflex again 2 days ago from [facility]. Her previous living child's was complicated by severe proteinuria and she states that she had symptoms of severe pre-eclampsia with that and was induced at 36 weeks. She otherwise has a had a current normal course. Past Med Surg Social Fam HX - Past Medical History Medical history: other Additional medical history: preeclampsia. uti Psychiatric history: anxiety, depression - Past Surgical History Surgical History: no surgical history Additional surgical history: tonsils and adenoids. 3 dental surgies. urethral dilation - Social History Smoking Status: Never smoker Smokeless Tobacco Status: No Alcohol use: none Drug use: none - Family History Father Adopted: No Family Member Ethnicity: Non- Living Status: Still Living Hx Family Cardiac Disorders: Yes (HTN) Hx Family Respiratory Disorders: No Hx Family Cancer: No Hx Family GI Disorders: No Hx Family Endocrine Disorder: No Hx Family Neuromuscular Disorders: No Hx Family Neurologic Disorders: No Hx Family HEENT Disorders: No Hx Family Autoimmune Disorders: No Mother History Unknown: Yes Adopted: No Family Member Ethnicity: Non- Living Status: Still Living Hx Family Cardiac Disorders: No (possibly on fathers side) Hx Family Respiratory Disorders: No Hx Family Cancer: Yes (maternal grandmother stage 4 follicular lymphoma) Hx Family GI Disorders: No Hx Family Genitourinary Disorders: No Hx Family Endocrine Disorder: No Hx Family Musculoskeletal Disorders: Yes (maternal grandmother bone cancer) Hx Family Neuromuscular Disorders: No Hx Family Neurologic Disorders: Yes (maternal grandmother cancer in brain) Hx Family HEENT Disorders: No Hx Family Autoimmune Disorders: No Hx Family Reproductive Disorders: No Hx Family Psychosocial Disorders: No Hx Family Medical Disorders: No Obstetrical History - Pregnancies : 4 Para: 1 Term: 1 : 0 Ab's: 2 Livin Medications and Allergies Adult Aspirin 325 PO DAILY 07/10/19 [History] Docusate Sodium 1 PO DAILY 07/10/19 [History] Keflex 500 mg PO BID 07/10/19 [History] Multivitamin Tablet 1 PO DAILY 07/10/19 [History] Allergy/AdvReac Type Severity Reaction Status Date / Time diphenhydramine AdvReac NAUSEA/VOMI Verified 09/01/18 14:52 [From Benadryl] TING Review of System OB All systems PM: reviewed and no additional remarkable complaints except as stated - Constitutional Constitutional ROS IM: fatigue, headache(s), other (right flank pain) Exam - Vital Signs Vital signs: Initial Vital Signs Temp Pulse Resp BP 98.1 F 89 20 107/71 07/10/19 09:31 07/10/19 09:31 07/10/19 09:31 07/10/19 09:31 - Constitutional Constitutional: well developed, well nourished, no acute distress, average body habitus - HEENT HEENT: Normocephaly, Mucus Membranes Moist - Lungs Respiratory exam: CTAB - Cardiovascular Cardiovascular exam: RRR, +S1, +S2 - Abdomen Abdomen: Present: bowel sounds normal, gravid, non tender (no CVA tenderness present) - Extremities Extremities exam: normal capillary refill, normal inspection, radial pulses palpable and symmetrical Deep Tendon Reflex Grade: 2+ Normal - Comments Comments: FHTs 140's on monitor Results All other labs normal. - VTE Reasons for not Prescribing Prophylaxis: Treatment not Indicated - Low risk for VTE
[2019-07-10] MEDS ORDERED: *HR* Nalbuphine 10 MG/ML AMPUL IV STA (15:48)
[2019-07-10 16:18] LABS: Amphetamine Screen,Urine Negative ng/mL (Cutoff=1000); Barbiturate Screen,Urine Negative ng/mL (Cutoff=200); Benzodiazepines Screen,Urine Negative ng/mL (Cutoff=200); Cannabinoid Screen,Urine Negative ng/mL (Cutoff = 50); Cocaine Screen,Urine Negative ng/mL (Cutoff= 300); Opiate Screen,Urine Negative ng/mL (Cutoff=300); Phencyclidine Screen,Urine Negative ng/mL (Cutoff=25)
[2019-07-11] MEDS: Piperacillin/Tazobactam 3.375 GM in 0.9 % Sodium Chloride Mini Bag 100 ML IVPB SCH (05:48)
[2019-07-11 05:56] LABS: Basophils # 0.1 K/mcL (0.0-0.2); Basophils % 0.3 %; Eosinophils # 0.2 K/mcL (0.0-0.6); Hematocrit 33.1 % (35.3-44.9); Hemoglobin 10.9 g/dL (11.5-15.4); Lymphocytes # 2.1 K/mcL (0.6-4.6); Lymphocytes % 13.7 %; Mean Corpuscular HGB Conc 32.9 g/dL (31.6-35.5); Mean Corpuscular Hemoglobin 30.4 pg (28.0-33.3); Mean Corpuscular Volume 92.2 fL (83.0-100.0); Mean Platelet Volume 9.9 fL (9.4-12.4); Monocytes # 0.9 K/mcL (0.0-1.3); Monocytes % 5.7 %; Platelet Count 240 K/mcL (140-400); Red Blood Count 3.59 M/mcL (3.82-4.97); Segmented Neutrophils % 77.3 %; White Blood Count 15.5 K/mcL (4.3-11.1)
[2019-07-11] MEDS: Ringers Solution, Lactated 1,000 ML IVC SCH (07:00)
[2019-07-11 08:17] VITALS: BP 105/67
[2019-07-11] MEDS ORDERED: Prenatal Vit/FA 1 EACH TABLET PO SCH (09:00)
[2019-07-11] MEDS: Aspirin 81 MG TAB.CHEW PO SCH (09:19)
--- NOTE | 2019-07-11 09:46 | Discharge Summary ---
Date of Encounter: 07/11/19 Time of Encounter: 09:48 - Discharge Diagnosis (1) UTI (urinary tract infection) in in second trimester Priority: Secondary Status: Acute Comments: 24 hours IV antibiotics RX for Macrobid (2) 24 weeks gestation of Priority: Primary Status: Acute Comments: admitted for observation (3) Anemia affecting in second trimester Priority: Secondary Status: Acute Comments: start Ferrous sulfate 325mg po daily - Discharge Medications Prescriptions: New Aspirin 81 mg PO DAILY tab.chew Ferrous Sulfate 325 mg PO DAILY #30 tablet Nitrofurantoin (BID) [Macrobid] 100 mg PO BID #14 capsule Terconazole Vag CRM [Terazol] 1 appl VG HS #3 tube Acetaminophen [Tylenol] 1,000 mg PO Q6HR PRN tablet PRN Reason: Mild Pain Continued Adult Aspirin 325 PO DAILY Multivitamin Tablet 1 PO DAILY Discontinued Docusate Sodium 1 PO DAILY Keflex 500 mg PO BID Home Medications: Adult Aspirin 325 PO DAILY 07/10/19 [History] Multivitamin Tablet 1 PO DAILY 07/10/19 [History] Acetaminophen [Tylenol] 1,000 mg PO Q6HR PRN tablet 07/11/19 [Rx] Aspirin 81 mg PO DAILY tab.chew 07/11/19 [Rx] Ferrous Sulfate 325 mg PO DAILY #30 tablet 07/11/19 [Rx] Nitrofurantoin (BID) [Macrobid] 100 mg PO BID #14 capsule 07/11/19 [Rx] Terconazole Vag CRM [Terazol] 1 appl VG HS #3 tube 07/11/19 [Rx] Allergies/Adverse Reactions: Allergy/AdvReac Type Severity Reaction Status Date / Time diphenhydramine AdvReac NAUSEA/VOMI Verified 09/01/18 14:52 [From Benadryl] TING Data Procedures and tests throughout hospitalization: Laboratory Tests 07/10/19 07/11/19 15:50 05:39 WBC 15.5 H RBC 3.59 L Hgb 10.9 L Hct 33.1 L MCV 92.2 MCH 30.4 MCHC 32.9 RDW 14.0 Plt Count 240 MPV 9.9 Immature Gran % 2.0 Seg Neutrophils % 77.3 Lymphocytes % 13.7 Monocytes % 5.7 Eosinophils % 1.0 Basophils % 0.3 Neutrophils # 12.0 H Lymphocytes # 2.1 Monocytes # 0.9 Eosinophils # 0.2 Basophils # 0.1 Urine Opiates Screen Negative Ur Buprenorphine Scrn Negative Ur Barbiturates Screen Negative Ur Phencyclidine Scrn Negative Ur Amphetamines Screen Negative U Benzodiazepines Scrn Negative Urine Cocaine Screen Negative U Marijuana (THC) Screen Negative Ur Drug Screen Interp See Below Labs on day of discharge: Labs from last 24 hours 07/11/19 07/10/19 05:39 15:50 WBC 15.5 H RBC 3.59 L Hgb 10.9 L Hct 33.1 L MCV 92.2 MCH 30.4 MCHC 32.9 RDW 14.0 Plt Count 240 MPV 9.9 Immature Gran % 2.0 Seg Neutrophils % 77.3 Lymphocytes % 13.7 Monocytes % 5.7 Eosinophils % 1.0 Basophils % 0.3 Neutrophils # 12.0 H Lymphocytes # 2.1 Monocytes # 0.9 Eosinophils # 0.2 Basophils # 0.1 Urine Opiates Screen Negative Ur Buprenorphine Scrn Negative Ur Barbiturates Screen Negative Ur Phencyclidine Scrn Negative Ur Amphetamines Screen Negative U Benzodiazepines Scrn Negative Urine Cocaine Screen Negative U Marijuana (THC) Screen Negative Ur Drug Screen Interp See Below Date of admission: 07/10/19 09:16 Primary care physician: Daniela Bennett Discharging clinician: Lillie Vital Anticipated date of discharge: 07/11/19 - Patient Status Disposition: Home, Self-Care Condition: Good Functional capacity at discharge: independent ambulation - Discharge Instructions Follow Up With: Daniela Bennett DO [Primary Care Provider] - Leonor Vallejo MD [Partnered Physician] - - Diet and Activity Activity: increase activity as tolerated Diet: regular diet 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 Camejo is a 24 year old at 24 weeks and 6 days that presented to [facility] with c/o dizziness, ringing in the ears, right flank pain, and chest pain. She was found to likely have pyelonephritis and transferred to [facility] this am. She states positive movement. Denies pain or cramping this morning. She otherwise has a had a current normal course. She is scheduled to see Dr. Vallejo on 07/20/19 Time Attestation: Total time spent providing and/or coordinating discharge services: Time Spent: Less than 30 minutes Exam - Constitutional Vitals: Temp Pulse Resp BP Pulse Ox 98.2 F 93 20 105/67 99 07/11/19 08:16 07/11/19 08:16 07/11/19 08:16 07/11/19 08:16 07/11/19 08:16 General appearance IM: A&O X 3, pleasant, answers questions appropriately - Respiratory Respiratory exam: Present: CTAB - Cardiovascular Cardiovascular exam IM: Present: RRR, +S1, +S2 - GI/Abdominal GI/Abdominal exam IM: normal bowel sounds, soft - Extremities Exam Extremities exam IM: Present: full ROM, normal capillary refill, normal inspection - Neurological Exam Neurological exam: alert, oriented X3, reflexes normal - VTE Reasons for not Prescribing Prophylaxis: Treatment not Indicated - Low risk for VTE
== END 2019-07-11 11:17 | disposition home or self-care (01) ==
LOC: 1NENUPED
PROVIDERS: ADMIT Advanced Practice Midwife; ATTEND Advanced Practice Midwife

== ENCOUNTER → 2019-09-28 13:00 | Observation (INO) ==
[2019-09-28 12:15] LABS: Bilirubin,Urine Negative (Negative); Blood,Urine Negative (Negative); Clarity,Urine Cloudy (Clear); Color,Urine Yellow (Yellow); Glucose,Urine (UA) Normal (Normal); Ketones,Urine Negative (Negative); Leukocyte Esterase,Urine Small (Negative); Nitrite,Urine Negative (Negative); Protein,Urine Negative (Neg-Trace); Specific Gravity,Urine 1.009 (1.010-1.025); Urobilinogen,Urine Normal (Normal)
[2019-09-28 12:18] LABS: Bacteria,Urine Many per hpf (None-Few); Hyaline Casts,Urine None Seen per lpf (None-Few); RBC,Urine 0-3 per hpf (0-3); Squamous Epithelial Cell,Urine Many per lpf (None-Few)
[2019-09-28 12:25] LABS: Amphetamine Screen,Urine Negative ng/mL (Cutoff=1000); Barbiturate Screen,Urine Negative ng/mL (Cutoff=200); Benzodiazepines Screen,Urine Negative ng/mL (Cutoff=200); Cannabinoid Screen,Urine Negative ng/mL (Cutoff = 50); Cocaine Screen,Urine Negative ng/mL (Cutoff= 300); Opiate Screen,Urine Negative ng/mL (Cutoff=300); Phencyclidine Screen,Urine Negative ng/mL (Cutoff=25)
[2019-09-28 12:52] LABS: Renal Epithelial Cells,Urine Few per hpf (None-Few); Transitional Epi Cells,Urine Few per hpf (None-Few)
== END | disposition home or self-care (01) ==
LOC: 1NENULAB
PROVIDERS: ADMIT Registered Nurse; ATTEND Registered Nurse

== ENCOUNTER 2019-10-20 07:45 | Inpatient (IN) ==
[2019-10-20] MEDS ORDERED: Ondansetron 4 MG/2 ML VIAL IVP PRN (07:53)
[2019-10-20] MEDS ORDERED: Metoclopramide 10 MG/2 ML VIAL IVP PRN (07:53)
[2019-10-20] MEDS ORDERED: Naloxone 0.4 MG/ML INJ IVP PRN (07:53)
[2019-10-20] MEDS ORDERED: *HR* Nalbuphine 10 MG/ML AMPUL IVP PRN (07:53)
[2019-10-20] MEDS ORDERED: Famotidine 20 MG/2 ML VIAL IVP PRN ×2 (07:53→09:50)
[2019-10-20] MEDS ORDERED: Lidocaine 1% 20 ML MDV INFILT PRN (07:53)
[2019-10-20 08:32] LABS: Basophils # 0.1 K/mcL (0.0-0.2); Basophils % 0.5 %; Eosinophils # 0.1 K/mcL (0.0-0.6); Eosinophils % 0.5 %; Hematocrit 37.6 % (35.3-44.9); Hemoglobin 13.2 g/dL (11.5-15.4); Immature Granulocytes % 2.9 % (0-4); Lymphocytes # 1.9 K/mcL (0.6-4.6); Lymphocytes % 12.5 %; Mean Corpuscular HGB Conc 35.1 g/dL (31.6-35.5); Mean Corpuscular Hemoglobin 31.6 pg (28.0-33.3); Mean Platelet Volume 10.3 fL (9.4-12.4); Monocytes % 6.3 %; Neutrophils # 11.9 K/mcL (1.6-8.9); Platelet Count 215 K/mcL (140-400); Red Blood Count 4.18 M/mcL (3.82-4.97); Red Cell Distribution Width 14.2 % (11.5-14.5); Segmented Neutrophils % 77.3 %; White Blood Count 15.3 K/mcL (4.3-11.1)
[2019-10-20] MEDS ORDERED: Penicillin G Potassium 5,000,000 UNIT in 0.9 % Sodium Chloride Mini Bag 100 ML IVPB ONE (08:39)
[2019-10-20 08:49] LABS: Amphetamine Screen,Urine Negative ng/mL (Cutoff=1000); Barbiturate Screen,Urine Negative ng/mL (Cutoff=200); Benzodiazepines Screen,Urine Negative ng/mL (Cutoff=200); Cannabinoid Screen,Urine Negative ng/mL (Cutoff = 50); Cocaine Screen,Urine Negative ng/mL (Cutoff= 300); Opiate Screen,Urine Negative ng/mL (Cutoff=300); Phencyclidine Screen,Urine Negative ng/mL (Cutoff=25)
[2019-10-20] MEDS ORDERED: miSOPROStoL 25 MCG TABLET PO PRN (09:32)
[2019-10-20] MEDS: Ringers Solution, Lactated 1,000 ML IVC SCH ×2 (09:35→14:20)
[2019-10-20] MEDS: Penicillin G Potassium 2,500,000 UNIT in 0.9 % Sodium Chloride 100 ML IVPB SCH ×2 (14:20→18:24)
[2019-10-20] MEDS ORDERED: Epidural Premix (fent/bupiv) 110 ML EP ONE (14:25)
[2019-10-20] MEDS ORDERED: Epidural Premix (fent/bupiv) 110 ML EP SCH (14:30)
[2019-10-20] MEDS ORDERED: *HR* FentaNYL (PF) 100 MCG/2 ML VIAL ONE (16:37)
[2019-10-20] MEDS: Oxytocin 20 units/ LR 1000 mL 20 UNIT/1,000 ML BAG IVC SCH ×2 (16:42→21:36)
[2019-10-20] MEDS ORDERED: *HR* Promethazine 25 MG/ML VIAL IVP PRN (17:47)
[2019-10-20] MEDS ORDERED: Rho Immune Globulin 1,500 UNIT SYRINGE IM PRN (21:34)
[2019-10-20] MEDS ORDERED: Measles/Mumps/Rubella Vacc 0.5 ML VIAL SQ PRN (21:34)
[2019-10-20] MEDS ORDERED: Oxytocin 20 units/ LR 1000 mL 20 UNIT/1,000 ML BAG IVC SCH (21:34)
[2019-10-20] MEDS ORDERED: Acetaminophen 325 MG TABLET PO PRN (21:34)
[2019-10-20] MEDS ORDERED: Benzocaine/Menthol 56 GM AEROSOL SPRAY TP PRN (22:31)
[2019-10-20] MEDS: Ibuprofen 600 MG TABLET PO PRN (23:01)
[2019-10-21] MEDS: Ibuprofen 600 MG TABLET PO PRN ×3 (07:35→20:00)
[2019-10-21] MEDS ORDERED: PRENATAL MULTIVITAMIN PO SCH (09:00)
[2019-10-21] MEDS ORDERED: Prenatal Vit/FA 1 EACH TABLET PO SCH (09:00)
[2019-10-21 16:24] VITALS: BP 136/82
== END 2019-10-21 20:01 | disposition home or self-care (01) | DRG 560 ==
LOC: 1NENULAB 07:45 → 1NENUOBS 23:10
PROVIDERS: ADMIT Student in an Organized Health Care Education/Training Program; ATTEND Student in an Organized Health Care Education/Training Program